=== PATIENT | female | born 1945 | race Caucasian/White ===

== ENCOUNTER 2020-01-14 06:20 | Outpatient (CLI) | payer MEDICARE, SELFPAY ==
[2020-01-14 18:34] LABS: SARS-CoV-2 RNA PCR Negative
== END 2020-01-14 06:21 | disposition home or self-care (01) ==
LOC: ANHCOVIDDT 06:21
PROVIDERS: PCP Family Medicine; Visit Provider Internal Medicine Gastroenterology
DX: Z01.818 Encounter for other preprocedural examination (principal); Z11.59 Encounter for screening for other viral diseases
CPT/HCPCS: 87635; U0003

== ENCOUNTER 2020-01-16 01:14 | Day surgery (SDC) | payer MEDICARE, SELFPAY ==
[2019-10-30 14:41] VITALS: BMI 23.8
[2020-01-13 11:23] VITALS: BMI 24.2
[2020-01-16 07:43] VITALS: BP 151/68; PULSE 92; RESP 16; TEMP 36.4; O2SAT 100
[2020-01-16] MEDS: LACTATED RINGERS 1,000 ML 150 ML IV CONT (07:48)
--- NOTE | 2020-01-16 08:03 | WPDANESEPPF ---
Anes - Initial Pre Proc Eval Procedure: Operation Date: 01/16/20 08:30 Proposed Procedures p Screening Colonoscopy - Skyler Chung MD Date/Time: 01/16/20 08:03 Surgeon: Skyler Chung MD Pre Op Diagnosis: Fam Hx Colon Ca Patient Data Age: 74 Gender: F Height: 5 ft 2 in Weight: 60.1 kg Last Vital Signs Temp 36.4 C 01/16/20 07:43 Pulse 92 01/16/20 07:43 Resp 16 01/16/20 07:43 BP 151/68 H 01/16/20 07:43 Pulse Ox 100 01/16/20 07:43 Allergies Allergy/AdvReac Type Severity Reaction Status Date / Time No Known Allergies Allergy Unverified 10/29/14 10:46 Home Medications Medication Instructions Recorded Confirmed Type simvastatin 10 mg PO DAILY 10/30/19 01/16/20 History calcium carbonate-vitamin D3 1 tablet PO DAILY 01/16/20 01/16/20 History [Calcium 500 + D] omega 0-gtw-wac-fish oil [[place]-3] 1 cap PO DAILY 01/16/20 01/16/20 History vitamins A,C,M-togu-hnwlfy [ICaps 1 tablet PO DAILY 01/16/20 01/16/20 History AREDS] Patient hx anesthesia problems: none Family hx anesthesia problems: none [facility] Past Medical History Medical History (Updated 01/16/20 @ 08:03 by Sno Warner MD) Hyperlipidemia Anes - Eval Final PreProcedure Day of Procedure 01/16/20 08:03 Patient weight: normal Heart: regular rate and rhythm Lungs: clear to auscultation Airway: Mallampati scale class 1 Neurological: alert and oriented Last oral intake: >/= 8 hours ASA classification: II Emergent: no Anesthetic plan: proceed Anesthesia type and monitoring: general GIVS and standard monitoring Informed Consent: The patient's anesthetic plan and its attendant risks and benefits were discussed with the patient/family/POA. Questions were solicited and answers provided to the satisfaction of the patient/family/POA.
--- NOTE | 2020-01-16 08:21 | P.HP_ITS ---
History of Present Illness History of Present Illness Consent: Risks, benefits, and alternatives have been discussed and questions answered. Patient agrees to proceed with procedure. Chief complaint: Fam Hx Colon Ca Narrative: Lelia Heard is a 74 year old W female Referred for screening colonoscopy secondary to family history of colon cancer in her mother diagnosed at age 60. Last colonoscopy 5 years ago no polyps were seen. [facility] Past Medical History Medical History (Updated 01/16/20 @ 08:03 by Son Warner MD) Hyperlipidemia Meds Home Medications and Allergies Home Medications Medication Instructions Recorded Confirmed Type simvastatin 10 mg PO DAILY 10/30/19 01/16/20 History calcium carbonate-vitamin D3 1 tablet PO DAILY 01/16/20 01/16/20 History [Calcium 500 + D] omega 3-meh-eji-fish oil [[place]-3] 1 cap PO DAILY 01/16/20 01/16/20 History vitamins A,C,H-sjdl-xkceqk [ICaps 1 tablet PO DAILY 01/16/20 01/16/20 History AREDS] Allergies Allergy/AdvReac Type Severity Reaction Status Date / Time No Known Allergies Allergy Unverified 10/29/14 10:46 Vital Signs Vital Signs - 24 hr 01/16/20 07:43 Temperature 36.4 C Pulse Rate 92 Respiratory Rate 16 Blood Pressure 151/68 H Pulse Oximetry 100 Exam Const: Orientation/consciousness: patient oriented x3 Resp: Auscultation: clear to auscultation bilaterally Cardio: Rate: regular rate Rhythm: regular rhythm Heart sounds: no murmurs GI: GI Palp: Yes Soft to palpation, No Tenderness to palpation present (GI), Yes No hepatosplenomegaly present and No Palpable mass present Auscultation: normal bowel sounds Neuro: General: patient oriented x3 and no focal motor deficits Extrem: General: no pedal edema Assessment and Plan Additional Plan Screening colonoscopy in high risk patient
[2020-01-16 09:20] VITALS: BP 99/58; PULSE 72; RESP 15; O2SAT 97
[2020-01-16 09:30] VITALS: BP 111/71; PULSE 67; RESP 13; O2SAT 100
[2020-01-16 09:40] VITALS: BP 119/71; PULSE 69; RESP 22; O2SAT 94
== END 2020-01-16 10:04 | disposition home or self-care (01) ==
PROVIDERS: PCP Nurse Practitioner Family; Visit Provider Internal Medicine Gastroenterology
PROC: 0DJD8ZZ Inspection of Lower Intestinal Tract, Via Natural or Artificial Opening Endoscopic (ICD-10-PCS; CPT 45378; principal; 2020-01-16 08:30)
DX: Z12.11 Encounter for screening for malignant neoplasm of colon (principal); K57.30 Diverticulosis of large intestine without perforation or abscess without bleeding; K64.1 Second degree hemorrhoids; K64.4 Residual hemorrhoidal skin tags; Z80.0 Family history of malignant neoplasm of digestive organs; E78.5 Hyperlipidemia, unspecified
CPT/HCPCS: G0105; 87635; C9803; J2704; J7120; U0003

== ENCOUNTER 2020-05-14 08:59 | Outpatient (CLI) | payer MEDICARE, SELFPAY ==
--- NOTE | ~2020-05-14 | MM_ITS ---
EXAMINATION: MM screening weston BI w dominga HISTORY: Screening TECHNIQUE: Craniocaudal and mediolateral oblique 3-D tomosynthesis images were obtained and synthetic 2-D images were generated. CAD analysis was submitted and interpreted. COMPARISON: Comparison to multiple prior studies sequentially, with oldest reviewed study dated 03/2016. BREAST PARENCHYMAL COMPOSITION: The breasts are extremely dense, which lowers the sensitivity of mamm ography. FINDINGS: There is no evidence of suspicious mass, calcification, or architectural distortion to sugg est malignancy in either breast. There has been no suspicious interval change. IMPRESSION: 1. No mammographic evidence of malignancy. 2. Recommend routine screening mammography in one year. BI-RADS Category 1: Negative Reviewed, dictated and finalized at location A.
== END 2020-05-14 09:00 | disposition home or self-care (01) ==
LOC: ANHIMG 09:00
PROVIDERS: PCP Nurse Practitioner Family; Visit Provider Nurse Practitioner Family
DX: Z12.31 Encounter for screening mammogram for malignant neoplasm of breast (principal)
CPT/HCPCS: 77063; 77067

== ENCOUNTER 2022-01-10 10:26 | Outpatient (CLI) | payer MEDICARE, SELFPAY ==
--- NOTE | ~2022-01-10 | XR_ITS ---
EXAM: XR abdomen/kub 1V HISTORY: LT URETERAL STONE 6 MO FU COMPARISON: None available FINDINGS: Clear lung bases. Normal bowel gas pattern. No organomegaly. No abnormal abdominal calcifi cation. Severe lumbar degenerative change, otherwise the regional bones and soft tissues are normal f or age. IMPRESSION: No nephrolithiasis detected. Reviewed, dictated and finalized at location K.
== END 2022-01-10 10:27 | disposition home or self-care (01) ==
PROVIDERS: PCP Nurse Practitioner Family; Visit Provider Urology
DX: N20.1 Calculus of ureter (principal)
CPT/HCPCS: 74018

== ENCOUNTER 2022-03-02 08:01 | Outpatient (CLI) | payer MEDICARE, SELFPAY ==
--- NOTE | ~2022-03-02 | MM_ITS ---
EXAMINATION: MM screening weston BI w dominga HISTORY: Screening TECHNIQUE: Craniocaudal and mediolateral oblique 3-D tomosynthesis images were obtained and synthetic 2-D images were generated. CAD analysis was submitted and interpreted. COMPARISON: Comparison to multiple prior studies sequentially, with oldest reviewed study dated 03/2016. BREAST PARENCHYMAL COMPOSITION: The breasts are extremely dense, which lowers the sensitivity of mamm ography FINDINGS: There is no evidence of suspicious mass, calcification, or architectural distortion to sugg est malignancy in either breast. There has been no suspicious interval change. IMPRESSION: 1. No mammographic evidence of malignancy. 2. Recommend routine screening mammography in one year. BI-RADS Category 1: Negative Reviewed, dictated and finalized at location A.
== END 2022-03-02 08:02 | disposition home or self-care (01) ==
PROVIDERS: PCP Nurse Practitioner Family; Visit Provider Nurse Practitioner Family
DX: Z12.31 Encounter for screening mammogram for malignant neoplasm of breast (principal)
CPT/HCPCS: 77063; 77067

== ENCOUNTER 2022-06-24 11:11 | Outpatient (CLI) | payer MEDICARE, SELFPAY ==
--- NOTE | ~2022-06-24 | XR_ITS ---
XR shoulder RT min 2V 06/24/2022 11:57 Indication: Right shoulder pain. Procedure: 4 views right shoulder Comparison: No prior studies for comparison. Findings: There is mild osteoarthritis of the glenohumeral joint. No fracture or traumatic malalignme nt. No soft tissue abnormality. No foreign bodies. Impression: 1: Mild osteoarthritis of the right glenohumeral joint. Reviewed, dictated and finalized at location A. Impression: 1: Mild osteoarthritis of the right glenohumeral joint.
--- NOTE | ~2022-06-24 | XR_ITS ---
XR cervical spine 4-5V 06/24/2022 11:57 Indication: Cervical spondylosis. Procedure: 4 views of the cervical spine Comparison: No prior studies for comparison. Findings: There is degenerative anterolisthesis at C3-4 and C4-5 and retrolisthesis at C5-6. There is disc narrowing at C4-5 through C6-7. No prevertebral soft tissue swelling. There is moderate multile cherry uncinate and facet hypertrophy. Lung apices are normal. Odontoid process is normal. No prevertebr al soft tissue abnormality. Impression: 1: Moderate cervical spondylosis. Reviewed, dictated and finalized at location A. Impression: 1: Moderate cervical spondylosis.
== END 2022-06-24 11:12 | disposition home or self-care (01) ==
LOC: ANHIMG 11:13
PROVIDERS: PCP Nurse Practitioner Family; Visit Provider Family Medicine
DX: M47.812 Spondylosis without myelopathy or radiculopathy, cervical region (principal); M19.011 Primary osteoarthritis, right shoulder
CPT/HCPCS: 72050; 73030

== ENCOUNTER 2022-12-15 11:20 | Outpatient (CLI) | payer MEDICARE, SELFPAY ==
--- NOTE | ~2022-12-15 | XR_ITS ---
XR abdomen/kub 1V 12/15/2022 11:45 INDICATION: Flank pain TECHNIQUE: KUB COMPARISON: None FINDINGS: Bowel gas pattern is normal. There is no evidence of free air, mass, organomegaly, ascites or obstruction. No abnormal calculi are seen. The bones appear intact. There is levoscoliosis of t he lumbar spine. IMPRESSION: 1: No acute abdominal abnormality identified. Reviewed, dictated and finalized at location L.
== END 2022-12-15 11:21 | disposition home or self-care (01) ==
PROVIDERS: PCP Nurse Practitioner Family; Visit Provider Urology
DX: N20.1 Calculus of ureter (principal)
CPT/HCPCS: 74018

== ENCOUNTER 2023-02-13 10:03 | Emergency (ER) | payer MEDICARE, SELFPAY ==
--- NOTE | ~2023-02-13 | XR_ITS ---
EXAMINATION: XR finger 2nd RT min 2V INDICATION: Right second finger pain and swelling TECHNIQUE: Four views of the right second finger are obtained. COMPARISON: None available FINDINGS: There is advanced osteoarthritis of the interphalangeal joints. No fracture is identified. There is mild soft tissue swelling of the second finger. IMPRESSION: 1. Osteoarthritis and soft tissue swelling without acute osseous abnormality. Reviewed, dictated and finalized at location A.
[2023-02-13 10:20] VITALS: BP 160/64; PULSE 82; RESP 16; TEMP 36.4; O2SAT 100
--- NOTE | 2023-02-13 10:32 | ED.FALL ---
HPI - Fall General Chief Complaint: Extremity Injury, Upper Stated Complaint: fall Time Seen by Provider: 02/13/23 10:27 Source: patient, family () and RN notes reviewed Mode of arrival: ambulatory Limitations: no limitations History of Present Illness HPI Narrative: Patient presents today complaining of a trip and fall on a gravel road approximately 2.5 hours prior to arrival. She reports pain to the right hand and right knee. Denies head injury or loss of consciousness. She currently rates her pain 4/10. She did take a shower and wash her abrasions prior to arrival. She is up-to-date on her tetanus vaccine. Related Data Home Medications Medication Instructions Recorded Confirmed simvastatin 10 mg tablet 10 mg PO DAILY 10/30/19 02/13/23 calcium carbonate 500 mg-vitamin 1 tablet PO DAILY 01/16/20 02/13/23 D3 5 mcg (200 unit) tablet (Calcium 500 + D) omega 3 350 mg-dha 235 mg-epa 90 1 cap PO DAILY 01/16/20 02/13/23 mg-fish oil 597 mg capsule,delay rel ([place]-3) vit A 7,160 unit-C 113 mg-E 100 1 tablet PO DAILY 01/16/20 02/13/23 fbge-fizj-vhchsn tablet,delayed rel. (ICaps AREDS) Allergies Allergy/AdvReac Type Severity Reaction Status Date / Time No Known Allergies Allergy Verified 02/13/23 10:12 Review of Systems Review of Systems: CONSTITUTIONAL: Denies body aches, fever, chills, or sweats. EYES: Denies visual changes, redness, or discharge. ENT: Denies rhinorrhea, congestion, sore throat, or otalgia. CARDIOVASCULAR: Denies chest pain, palpitations, or edema. RESPIRATORY: Denies cough or dyspnea. GASTROINTESTINAL: Denies abdominal pain, nausea, vomiting, or diarrhea. GENITOURINARY: Denies dysuria or hematuria. SKIN: Denies rash, itching. + abrasions to right knee and left hand MUSCULOSKELETAL: Pain to bilateral hands and right knee NEUROLOGIC: Denies headache, numbness, tingling, or weakness. PSYCH: Denies depression or anxiety. [facility] Past Medical History Medical History (Updated 02/13/23 @ 11:01 by Mahi Preciado, PRIMARY HEALTH [employer]GANISATION MANAGER, BC) Hyperlipidemia Exam Narrative: GENERAL: Well-appearing, well-nourished, and in no acute distress. HEAD: Normocephalic, atraumatic. EYES: EOMI. No redness or drainage. Conjunctivae normal. ENT: Mucous membranes pink and moist. Nares clear. No rhinorrhea. TMs normal bilaterally. Throat normal. Uvula midline. NECK: Normal AROM. Supple. No lymphadenopathy. CHEST: No respiratory distress. Clear to auscultation. HEART: Regular rate and rhythm. No murmur appreciated. Normal peripheral pulses. ABDOMEN: Soft, nontender, nondistended, normal active bowel sounds. MUSCULOSKELETAL: No bony tenderness. EXTREMITIES:Right knee:Scattered superficial abrasions to the knee and proximal lower leg. No bony tenderness about the knee. No ecchymosis or edema noted. Distal sensation intact. Capillary refill normal. Pedal pulse normal. Full AROM of the knee without pain. Left hand: 3 very superficial flap abrasions to the palmar aspect of the hand. No edema, erythema, or ecchymosis. No bony tenderness of the hand or wrist. Full range of motion of the fingers and wrist without pain. Right hand: Tenderness to the 2nd finger with scant edema. Distal sensation intact. Capillary refill normal. Somewhat limited range of motion, patient also has osteoarthritis at baseline peer. SKIN: Warm, dry, no rash. Capillary refill normal. Normal skin turgor. NEURO: No focal deficits. Alert and oriented x3. Gait steady. PSYCH: Normal affect. No signs of depression or anxiety. Course Course Level of Care: Express Care Visit Vital Signs Vital signs: Vital Signs Temperature 97.6 F 02/13/23 10:20 Pulse Rate 82 02/13/23 10:20 Respiratory Rate 16 02/13/23 10:20 Blood Pressure 160/64 H 02/13/23 10:20 Pulse Oximetry 100 02/13/23 10:20 Oxygen Delivery Room Air 02/13/23 10:20 Temperature 97.6 F 02/13/23 10:20 Pulse Rate 82 02/13/23 10:20
== END 2023-02-13 11:03 | disposition home or self-care (01) ==
PROVIDERS: Emergency Provider Nurse Practitioner; PCP Nurse Practitioner Family
DX: S80.211A Abrasion, right knee, initial encounter (principal); S60.512A Abrasion of left hand, initial encounter; W01.0XXA Fall on same level from slipping, tripping and stumbling without subsequent striking against object, initial encounter; S60.021A Contusion of right index finger without damage to nail, initial encounter; E78.5 Hyperlipidemia, unspecified
CPT/HCPCS: 73140; 99213; G0463

== ENCOUNTER → 2023-04-19 14:43 | Outpatient (CLI) | payer MEDICARE, SELFPAY ==
--- NOTE | ~2023-04-19 | MM_ITS ---
EXAMINATION: MM screening weston BI w dominga HISTORY: Screening TECHNIQUE: Craniocaudal and mediolateral oblique 3-D tomosynthesis images were obtained and synthetic 2-D images were generated. CAD analysis was submitted and interpreted. COMPARISON: Comparison to multiple prior studies sequentially, with oldest reviewed study dated 03/2016. BREAST PARENCHYMAL COMPOSITION: The breasts are heterogeneously dense, which may obscure small masses FINDINGS: There is a new mass in the lower inner quadrant of the right breast, middle third. The left breast is stable without evidence for malignancy. IMPRESSION: 1. New right breast mass. 2. Additional mammographic views and possible breast ultrasound are recommended. BI-RADS Category 0: Incomplete: Needs additional imaging evaluation. Reviewed, dictated and finalized at location A. IMPRESSION: 1. New right breast mass. 2. Additional mammographic views and possible breast ultrasound are recommended . BI-RADS Category 0: Incomplete: Needs additional imaging evaluation.
== END ==
PROVIDERS: PCP Nurse Practitioner Family; Visit Provider Nurse Practitioner Family
DX: Z12.31 Encounter for screening mammogram for malignant neoplasm of breast (principal); N63.14 Unspecified lump in the right breast, lower inner quadrant
CPT/HCPCS: 77063; 77067

== ENCOUNTER → 2023-05-16 09:09 | Outpatient (CLI) | payer MEDICARE, SELFPAY ==
--- NOTE | ~2023-05-16 | MMUS_ITS ---
EXAMINATION: MM diagnostic weston RT w dominga, US breast RT limited HISTORY: New right breast mass reported in lower inner quadrant middle third on screening mammogram o f 04/19/2023 TECHNIQUE: Additional 3-D tomosynthesis images of the right breast were performed and synthetic 2-D i mages were generated. CAD analysis was submitted and interpreted. High resolution lower inner quadran t right breast ultrasound was performed. COMPARISON: 04/19/2023 and bilateral screening mammogram FINDINGS: MAMMOGRAPHIC FINDINGS: An approximately 7.5 x 9.5 mm circumscribed mass is identified in the lower inner quadrant of the rig ht breast mid depth. ULTRASOUND: Right breast 3:00 5 cm from nipple: 5.8 x 8 x 11 mm circumscribed hypoechoic solid mass lesion with m inimal internal vascularity and through transmission is noted. The lesion has lobular outline. This i s likely a benign fibroadenoma. 6 month diagnostic right mammogram and targeted right breast ultrasou nd follow-up are recommended. IMPRESSION: 1. Probable benign fibroadenoma at right breast 3:00 5 cm from nipple 2. Recommend 6 month diagnostic right mammogram and targeted right 3:00 breast ultrasound follow-up BI-RADS category 3, probably benign findings. Reviewed, dictated and finalized at location A. IMPRESSION: 1. Probable benign fibroadenoma at right breast 3:00 5 cm from nipple 2. Recommend 6 month diagnostic right mammogram and targeted right 3:00 breast ultrasound follow-up BI-RADS category 3, probably benign findings.
== END ==
PROVIDERS: PCP Nurse Practitioner Family; Visit Provider Nurse Practitioner Family
DX: R92.8 Other abnormal and inconclusive findings on diagnostic imaging of breast (principal)
CPT/HCPCS: 76642; 77061; 77065; G0279

== ENCOUNTER → 2023-07-20 12:12 | Outpatient (CLI) | payer MEDICARE, SELFPAY ==
--- NOTE | ~2023-07-20 | DEXA_ITS ---
Bone Density Report Name: SANGITA MOLINA Age: 77 Sex: Female Ethnicity: White Date of : 1945 Indication: osteopenia; height loss; postmenopausal Referring Provider: [place], Brooke Contreras Study: Bone densitometry was performed. Exam Date: July 20, 2023 Accession number: [id number] Bone Density: Region BMD T-score Z-score Classification AP Spine (L1, L2) 0.784 -1.8 0.6 Osteopenia Femoral Neck (Left) 0.663 -1.7 0.5 Osteopenia Total Hip (Left) 0.789 -1.3 0.6 Osteopenia Femoral Neck (Right) 0.719 -1.2 1.0 Osteopenia Total Hip (Right) 0.848 -0.8 1.1 Normal Total Hip Mean 0.819 -1.1 0.9 Osteopenia World Health Organization criteria for BMD impression classify patients as: Normal (T-score at or above -1.0), Osteopenia (T-score between -1.0 and -2.5), or Osteoporosis (T-score at or below -2.5). 10-year Fracture Risk(1): Major Osteoporotic Fracture 13% Hip Fracture 2.9% Reported Risk Factors: [place] (), Neck BMD=0.663, BMI=24.5 (1) FRAX(R) Version 3.08. Fracture probability calculated for an untreated patient. Fracture probability may be lower if the patient has received treatment. Previous Exams: Region Exam Age BMD T-score BMD Change BMD Change Date g/cm2 vs Baseline vs Previous AP Spine(L1, L2) 07/20/2023 77 0.784 -1.8 -0.034* 0.031* 12/28/2018 73 0.753 -2.1 -0.065* 0.017 11/10/2016 71 0.735 -2.2 -0.082* -0.040* 04/08/2009 63 0.775 -1.9 -0.043* -0.043* 09/08/2006 60 0.818 -1.5 0.000 0.000 07/18/2005 59 0.817 -1.5 Total Hip(Left) 07/20/2023 77 0.789 -1.3 -0.071* -0.024 12/28/2018 73 0.813 -1.1 -0.047* 0.012 11/10/2016 71 0.801 -1.2 -0.059* -0.027 04/08/2009 63 0.829 -0.9 -0.032* 0.013 09/08/2006 60 0.815 -1.0 -0.045* -0.045* 07/18/2005 59 0.860 -0.7 Total Hip(Right) 07/20/2023 77 0.848 -0.8 -0.025 0.017 12/28/2018 73 0.831 -0.9 -0.042* 0.018 11/10/2016 71 0.813 -1.1 -0.060* -0.036* 04/08/2009 63 0.849 -0.8 -0.024 -0.022 09/08/2006 60 0.871 -0.6 -0.003 -0.003 07/18/2005 59 0.873 -0.6 *Denotes significance at 95% confidence level, LSC for AP Spine = 0.022 g/cm2, LSC for Total Hip = 0.027 g/cm2 Clinical Information Provided by Patient:
== END ==
PROVIDERS: PCP Nurse Practitioner Family; Visit Provider Nurse Practitioner Family
DX: Z78.0 Asymptomatic menopausal state (principal); M85.88 Other specified disorders of bone density and structure, other site; M85.852 Other specified disorders of bone density and structure, left thigh; M85.851 Other specified disorders of bone density and structure, right thigh
CPT/HCPCS: 77080

== ENCOUNTER 2023-08-08 08:48 | Outpatient (CLI) | payer MEDICARE, SELFPAY ==
--- NOTE | ~2023-08-08 | XR_ITS ---
XR abdomen/kub 1V 08/08/2023 09:18 INDICATION: History of lithotripsy. TECHNIQUE: KUB COMPARISON: 12/15/2022 FINDINGS: Bowel gas pattern is normal. There is no evidence of free air, mass, organomegaly, ascites or obstruction. No abnormal calculi are seen. The bones appear intact. Moderate levoscoliosis. IMPRESSION: 1: No acute abdominal abnormality identified. Reviewed, dictated and finalized at location D. REPAIRER
== END 2023-08-08 08:49 | disposition home or self-care (01) ==
PROVIDERS: PCP Nurse Practitioner Family; Visit Provider Urology
DX: Z87.442 Personal history of urinary calculi (principal)
CPT/HCPCS: 74018

== ENCOUNTER 2023-11-14 14:21 | Outpatient (CLI) | payer MEDICARE, SELFPAY ==
--- NOTE | ~2023-11-14 | MMUS_ITS ---
EXAMINATION: MM diagnostic weston RT w dominga, US breast RT limited HISTORY: Six-month follow-up of right 3:00 lesion 5 cm from nipple TECHNIQUE: Full field and spot ML, MLO and CC 3-D tomosynthesis images of the right breast were perfo rmed and synthetic 2-D images were generated. CAD analysis was submitted and interpreted. High resolu tion lower inner quadrant right breast ultrasound was performed. COMPARISON: 05/16/2023 diagnostic right mammogram and limited right breast ultrasound FINDINGS: MAMMOGRAPHIC FINDINGS: Approximately 7.5 x 11 mm irregular is noted in the lower inner quadrant of the right breast at mid d epth. Approximately 4.7 x 5.3 mm circumscribed opacity is noted posteriorly in the lower inner quadrant of the right breast. ULTRASOUND: 3:00 5 cm from nipple: Parallel irregular heterogeneous hypoechoic mass measuring approximately 6.2 x 7 x 7 x 11.3 mm. Portions of the margins are ill-defined compared to 05/16/2023. Ultrasound-guided bi opsy is recommended. IMPRESSION: 1. Irregular 1.3 cm mass with partially noncircumscribed margins 3:00 5 cm from nipple 2. Ultrasound-guided biopsy of right breast 3:00 lesion is recommended BI-RADS category 4, suspicious findings. Dr. Agrawal telephoned the report and ultrasound-guided biopsy recommendation on 11/14/2023 at 1527 hours to Nurse Kayla. Reviewed, dictated and finalized at location A. IMPRESSION: 1. Irregular 1.3 cm mass with partially noncircumscribed margins 3:00 5 cm from nipple 2. Ultrasound-guided biopsy of right breast 3:00 lesion is recommended BI-RADS category 4, suspicious findings. Dr. Agrawal telephoned the report and ultrasound-guided biopsy recommendation on at 1527 hours to Nurse Kayla.
== END 2023-11-14 14:22 ==
PROVIDERS: PCP Family Medicine; Visit Provider Nurse Practitioner Family
DX: R92.8 Other abnormal and inconclusive findings on diagnostic imaging of breast (principal)
CPT/HCPCS: 76642; 77061; 77065; G0279

== ENCOUNTER 2024-02-01 07:58 | Outpatient (CLI) | payer MEDICARE, SELFPAY ==
--- NOTE | ~2024-02-01 | MMUS_ITS ---
US breast biopsy RT w image, MM post biopsy invasive RT EXAMINATION: US GUIDED NEEDLE BIOPSY WITH VACUUM ASSISTANCE DATE: 02/01/2024 10:49 CDT INDICATION: Right breast mass seen on prior examination. Ultrasound-guided core biopsy is requested to evaluate for malignancy. TECHNIQUE AND FINDINGS: The risks and potential benefits of the procedure were discussed with the patient, and written inform ed consent was obtained. After sterile preparation of the right breast, 1% lidocaine was utilized fo r local anesthesia. 1% lidocaine with epinephrine was used for deep anesthesia. A 10G vacuum-assisted biopsy gun needle was advanced through to the outer edge of the region of inter est from a medial approach utilizing sonographic guidance. A total of three tissue core samples were obtained through the lesion. An Inrad tissue marker clip was then placed at the biopsy site. Hemost asis was achieved. The patient tolerated procedure well and there was no evidence of immediate complication. The patien t was given verbal instructions partly is from the department. Right breast mammograms to document t issue marker clip placement. The tissue samples were submitted to surgical pathology for histologic a nalysis. IMPRESSION: 1. Successful ultrasound-guided vacuum-assisted biopsy of right breast mass with tissue marker place ment. Please refer to pathology report for histologic analysis. Reviewed, dictated and finalized at location B. IMPRESSION: 1. Successful ultrasound-guided vacuum-assisted biopsy of right breast mass wi th tissue marker placement. Please refer to pathology report for histologic margarita lysis.
== END 2024-02-01 07:59 | disposition home or self-care (01) ==
PROVIDERS: PCP Nurse Practitioner Family; Visit Provider Nurse Practitioner Family
DX: C50.911 Malignant neoplasm of unspecified site of right female breast (principal); R92.8 Other abnormal and inconclusive findings on diagnostic imaging of breast; N63.10 Unspecified lump in the right breast, unspecified quadrant
CPT/HCPCS: 19083; 88305; 88360; A4648

== ENCOUNTER 2024-03-13 08:27 | Outpatient (CLI) | payer MEDICARE, SELFPAY ==
--- NOTE | ~2024-03-13 | MMUS_ITS ---
EXAMINATION: US_MAGSEEDRT_US, MM post biopsy diagnostic RT INDICATION: Right breast cancer TECHNIQUE: The procedure for a ultrasound -guided Magseed localization was discussed with the patient . Risks discussed included bleeding and infection. The patient verbalized understanding and agreed to proceed. The time out was performed to verify the patient's name, date of , and site of procedure. The s kin overlying the right breast was prepared in usual fashion. Utilizing ultrasound guidance, the need le was advanced into the right breast. Confirmation of Magseed position was achieved with ultrasound and subsequent mediolateral and craniocaudal mammogram. The patient tolerated procedure without immed iate complication. BREAST PARENCHYMAL COMPOSITION: Dense: The breasts are heterogeneously dense, which may obscure small masses FINDINGS: Ultrasound and mammographic images demonstrate deployment of the Magseed device of the biop sy-proven right breast cancer. IMPRESSION: 1. Successful ultrasound-guided right breast Magseed localization. Post procedure mammogram for marke r placement demonstrates appropriate location. Reviewed, dictated and finalized at location B. IMPRESSION: 1. Successful ultrasound-guided right breast Magseed localization. Post procedu re mammogram for marker placement demonstrates appropriate location.
== END 2024-03-13 08:28 | disposition home or self-care (01) ==
PROVIDERS: PCP Nurse Practitioner Family; Visit Provider Physician Assistant Surgical
DX: C50.911 Malignant neoplasm of unspecified site of right female breast (principal); R92.8 Other abnormal and inconclusive findings on diagnostic imaging of breast
CPT/HCPCS: 19285; 77065; A4648

== ENCOUNTER 2024-04-22 09:21 | Outpatient (CLI) | payer MEDICARE, SELFPAY ==
--- NOTE | 2024-04-22 09:43 | ECG_ITS ---
Test Date: 2024-04-22 10:09:06 Measurements Intervals Elmo Rate: 65 P: 70 UT: 170 QRS: -7 QRSD: 86 T: 47 QT: 408 QTc: 425 Interpretive Statements SINUS RHYTHM LEFT ATRIAL ENLARGEMENT [-0.15mV P WAVE IN V1/V2] LOW QRS VOLTAGE IN PRECORDIAL LEADS [QRS DEFLECTION < 1.0 mV IN CHEST LEADS] PATTERN CONSISTENT WITH PULMONARY DISEASE ABNORMAL ECG No previous ECG available for comparison Electronically Signed On 04-22-2024 11:03:16 CDT by Bryant Michaels M.D.
== END 2024-04-22 09:22 | disposition home or self-care (01) ==
PROVIDERS: PCP Nurse Practitioner Family; Visit Provider Surgery
DX: E78.5 Hyperlipidemia, unspecified (principal); R94.31 Abnormal electrocardiogram [ECG] [EKG]
CPT/HCPCS: 93005

== ENCOUNTER 2024-04-24 01:03 | Day surgery (SDC) | payer MEDICARE, SELFPAY ==
[2024-04-19 10:09] VITALS: BMI 24.5
--- NOTE | 2024-04-19 10:27 | PC.NURSE ---
Report to the Outpatient Waiting Room, entrance under the green pavilion located off [facility], at time __7:00AM on date __04/24/24 . Planned Procedure Time: __9:00AM . Time changes happen often and if your time is changed the preop area will call you the afternoon before. - You and your visitor will be asked to self-screen and do not enter if you have any COVID symptoms. - A mask is optional within the hospital at this time. Patients may have clear liquids (water, carbonated beverages, clear teas, apple juice) until 3 hours prior to surgery with a maximum of 20 ounces. - No food from midnight until time of surgery. Take the following medications with a SIP of water the morning of surgery: NONE DO NOT STOP ANY OF YOUR OTHER PRESCRIPTION MEDICATIONS PRIOR TO SURGERY ?EXCEPT THE FOLLOWING Medications to discontinue per physician ___HOLD ALL VITAMINS/SUPPLEMENTS 3 DAYS PRE-OP PER ANESTHESIA Date to take last dose 04/20/24 Please no make-up, nail guatemalan, hairspray, perfume, deodorant, or body powder the day of surgery. No jewelry (including any body piercings) or valuables the day of surgery, leave them at home. Please take a shower or bath the night before, or the morning of, surgery with an antibacterial soap. Wear comfortable, loose fitting clothing. - Jewelry must be removed prior to entering the operating room. Rings and piercings that are not removed may be cut off. - The hospital will not accept responsibility for valuables. - Please leave all valuables, including medications, at home the day of surgery. If you are going home after surgery, a licensed entry driver operator must drive you home. - NO public transportation without another adult if you receive anesthesia. - We recommend that an adult stay with you for 24 hours following discharge. - We also recommend that you do not drive, make important decision, drink alcoholic beverages, or take any drugs that were not prescribed by your health care provider for at least 24 hours after your discharge time. Follow any additional instructions given to you from your surgeon. If you or anyone in your household have experienced Covid symptoms in the past week, please notify your surgeon or the nurse liaison at the phone number below for possible testing. Telephone instructions given to ___PATIENT and asked if any additional questions and then verbalized understanding. Patient advised to call surgeon office or pre surgery nurse liaison [phone] if any additional questions.
--- NOTE | 2024-04-19 10:30 | PC.NURSE ---
Report to the Outpatient Waiting Room, entrance under the green pavilion located off [facility], at time __7:00AM on date . Planned Procedure Time: ___9:00AM . Time changes happen often and if your time is changed the preop area will call you the afternoon before. - You and your visitor will be asked to self-screen and do not enter if you have any COVID symptoms. - A mask is optional within the hospital at this time. -NOTHING BY MOUTH from midnight until time of surgery.*8 HOURS PRIOR TO SURGERY PER DR RAMSEY. Take the following medications with a SIP of water the morning of surgery: DO NOT STOP ANY OF YOUR OTHER PRESCRIPTION MEDICATIONS PRIOR TO SURGERY ?EXCEPT THE FOLLOWING Medications to discontinue per physician Date to take last dose Please no make-up, nail vietnamese, hairspray, perfume, deodorant, or body powder the day of surgery. No jewelry (including any body piercings) or valuables the day of surgery, leave them at home. Please take a shower or bath the night before, or the morning of, surgery with an antibacterial soap. Wear comfortable, loose fitting clothing. Children are encouraged to wear pajamas. - Jewelry must be removed prior to entering the operating room. Rings and piercings that are not removed may be cut off. - The hospital will not accept responsibility for valuables. - Please leave all valuables, including medications, at home the day of surgery. If you are going home after surgery, a licensed wedding transportation driver must drive you home. - NO public transportation without another adult if you receive anesthesia. - We recommend that an adult stay with you for 24 hours following discharge. - We also recommend that you do not drive, make important decision, drink alcoholic beverages, or take any drugs that were not prescribed by your health care provider for at least 24 hours after your discharge time. For Pediatric surgeries, we recommend two adults accompany the child home. Follow any additional instructions given to you from your surgeon. If you or anyone in your household have experienced Covid symptoms in the past week, please notify your surgeon or the nurse liaison at the phone number below for possible testing. Telephone instructions given to and asked if any additional questions and then verbalized understanding. Patient advised to call surgeon office or pre surgery nurse liaison [phone] if any additional questions.
--- NOTE | 2024-04-19 10:35 | PC.NURSE ---
Report to the Outpatient Waiting Room, entrance under the green pavilion located off [facility], at time __7:00AM on date __04/24/24 . Planned Procedure Time: __9:00AM . Time changes happen often and if your time is changed the preop area will call you the afternoon before. - You and your visitor will be asked to self-screen and do not enter if you have any COVID symptoms. - A mask is optional within the hospital at this time. - No food from midnight until time of surgery. NOTHING BY MOUTH FOR 8 HRS PRIOR TO SURGERY PER DR RAMSEY. Take the following medications with a SIP of water the morning of surgery: NONE DO NOT STOP ANY OF YOUR OTHER PRESCRIPTION MEDICATIONS PRIOR TO SURGERY ?EXCEPT THE FOLLOWING Medications to discontinue per physician ___HOLD ALL VITAMINS/SUPPLEMENTS 3 DAYS PRE-OP PER ANESTHESIA Date to take last dose____04/20/24 Please no make-up, nail jamaican, hairspray, perfume, deodorant, or body powder the day of surgery. No jewelry (including any body piercings) or valuables the day of surgery, leave them at home. Please take a shower or bath the night before, or the morning of, surgery with an antibacterial soap. Wear comfortable, loose fitting clothing. - Jewelry must be removed prior to entering the operating room. Rings and piercings that are not removed may be cut off. - The hospital will not accept responsibility for valuables. - Please leave all valuables, including medications, at home the day of surgery. If you are going home after surgery, a licensed dump truck driver must drive you home. - NO public transportation without another adult if you receive anesthesia. - We recommend that an adult stay with you for 24 hours following discharge. - We also recommend that you do not drive, make important decision, drink alcoholic beverages, or take any drugs that were not prescribed by your health care provider for at least 24 hours after your discharge time. Follow any additional instructions given to you from your surgeon. If you or anyone in your household have experienced Covid symptoms in the past week, please notify your surgeon or the nurse liaison at the phone number below for possible testing. Telephone instructions given to ____PATIENT and asked if any additional questions and then verbalized understanding. Patient advised to call surgeon office or pre surgery nurse liaison [phone] if any additional questions.
[2024-04-24] VITALS (14 sets, daily range): BP systolic 122–165; BP diastolic 58–85; PULSE 70–87; RESP 8–20; TEMP 35.5–36.5; O2SAT 95–100
--- NOTE | ~2024-04-24 | NM_ITS ---
EXAMINATION: NM sentinel node inject only DATE: 04/24/2024 09:14 INDICATION: Right breast cancer TECHNIQUE: 1.068 mCi Tc-99m filtered sulfur colloid was injected in four aliquots in the anterior brigitte ast near the areola. No images were obtained. IMPRESSION: 1. Right breast sentinel lymph node radiopharmaceutical injection. Reviewed, dictated and finalized at location A.
--- NOTE | ~2024-04-24 | MM_ITS ---
[id number] 04/24/2024 10:57 Indication: Status post surgical excision biopsy of the right breast Procedure: Post biopsy specimen radiograph Comparison: 03/13/2024 Findings: Specimen radiograph demonstrates the mass of interest as well as coil marker and magseed de vice. Impression: 1: Post biopsies specimen contains the mass, tissue marker and magseed device of interest. Reviewed, dictated and finalized at location B. Impression: 1: Post biopsies specimen contains the mass, tissue marker and magseed device o f interest.
[2024-04-24] MEDS: LIDOCAINE/PRILOCAINE CREAM 2.5-2.5% TUBE 1 EACH TOPICAL (07:21)
[2024-04-24] MEDS: ACETAMINOPHEN 500 MG TABLET 1000 MG PO (07:30)
[2024-04-24] MEDS: LACTATED RINGERS 1,000 ML 30 ML IV CONT ×2 (07:39→11:32)
--- NOTE | 2024-04-24 07:45 | WPDANESEPPF ---
Anes - Initial Pre Proc Eval Procedure: Operation Date: 04/24/24 09:00 Proposed Procedures p Right Lumpectomy with Mag Seed Localization, Right [place] Lymph Node Biopsy with Lymphoseek, Possible Injection of Methylene Blue, - Shelby Stewart MD s Right Breast Oncoplasty, Left Breast Symmetrizing Reduction Mastopexy - Paul Muñoz MD Date/Time: 04/24/24 07:45 Surgeon: Shelby Stewart MD Pre Op Diagnosis: right breast CA Patient Data Age: 78 Gender: F Height: 1.57 m Weight: 61 kg Allergies Allergy/AdvReac Type Severity Reaction Status Date / Time No Known Allergies Allergy Verified 04/24/24 07:41 Home Medications Medication Instructions Recorded Confirmed Type calcium carbonate 500 mg-vitamin 1 tablet PO DAILY 01/16/20 04/24/24 History D3 5 mcg (200 unit) tablet (Calcium 500 + D) omega 3 350 mg-dha 235 mg-epa 90 1 cap PO DAILY 01/16/20 04/24/24 History mg-fish oil 597 mg capsule,delay rel ([place]-3) vit A 7,160 unit-C 113 mg-E 100 1 tablet PO DAILY 01/16/20 04/24/24 History ejbm-[id number]-cwomcm tablet,delayed rel. (ICaps AREDS) ascorbic acid (vitamin C) 1,000 mg 1 g PO DAILY 04/19/24 04/24/24 History capsule multivitamin 1 tablet PO DAILY 04/19/24 04/24/24 History simvastatin 20 mg tablet 20 mg PO DAILY #90 tabs 04/23/24 04/24/24 Rx Patient hx anesthesia problems: none Family hx anesthesia problems: none Results Review: All pre-operative results and documents have been reviewed as part of the pre-operative evaluation. [facility] Past Medical History Medical History (Updated 02/19/24 @ 11:32 by Shelby Stewart MD) Anxiety Arthritis Breast mass, right Hyperlipidemia Osteopenia Family History Family History (Updated 02/19/24 @ 11:04 by Irene Obrien CMA) Father Diabetes mellitus Heart disease Cerebrovascular accident Mother Carcinoma of colon Hypertension Depression Heart disease Sibling Depression Alcoholism Grandparent Breast cancer Asthma Hypertension Diabetes mellitus Heart disease Social History Social History (Updated 02/19/24 @ 10:53 by Irene Obrien CMA) Social History: Patient is very confident filling out medical forms. Smoking status: Never smoker Alcohol intake: current Substance use: never Substance use type: does not use Do You Feel Safe in your Home?: Yes Lack of Transportation: No Lack of Food: Never True Current Housing: I Have Housing Concerned About Future Housing: No Difficulty Paying Gas/Electric Bills: No Difficulty Paying for Meds: No Currently Unemployed: No Education: Bachelor's Degree Difficulty w/ Childcare or Family Care: No Living arrangements: with family Additional living arrangements comments: [employer] Occupation/Education: retired Spiritual care concerns: No Agree to blood products: Yes Anes - Eval Final PreProcedure Day of Procedure 04/24/24 07:45 Patient weight: normal Heart: regular rate and rhythm Lungs: clear to auscultation Airway: Mallampati scale class II Neurological: alert and oriented Last oral intake: >/= 8 hours ASA classification: III Emergent: no Anesthetic plan: proceed Anesthesia type and monitoring: general ETT and standard monitoring Results Review: All pre-operative results and documents have been reviewed as part of the pre-operative evaluation. Informed Consent: The patient's anesthetic plan and its attendant risks and benefits were discussed with the patient/family/POA. Questions were solicited and answers provided to the satisfaction of the patient/family/POA.
--- NOTE | 2024-04-24 08:15 | PM.HPGS ---
History of Present Illness History of Present Illness Chief complaint: right breast CA Narrative: Patient seen and examined in pre-operative holding area. No interval change in medical history or symptoms. Patient remembers previous discussion of benefits and alternatives to procedure. Continues to desire to proceed with right breast oncoplastic mastopexy and left breast reduction. I reviewed the risks including but not limited to bleeding ,infection, asymmetry, undesireable cosmetic appearance, partial/total skin/nipple loss, no change or worsening of symptoms, change in sensation. I discussed the possible use of assistants and their level of participation in the case. Patient stated understanding and signed the consent form wishing to proceed Review of Systems Review of Systems: All systems reviewed & are unremarkable except as noted in HPI and below PMFSH Past Medical History Medical History (Updated 02/19/24 @ 11:32 by Shelby Stewart MD) Anxiety Arthritis Breast mass, right Hyperlipidemia Osteopenia Family History Family History (Updated 02/19/24 @ 11:04 by Irene Obrien CMA) Father Diabetes mellitus Heart disease Cerebrovascular accident Mother Carcinoma of colon Hypertension Depression Heart disease Sibling Depression Alcoholism Grandparent Breast cancer Asthma Hypertension Diabetes mellitus Heart disease Social History Social History (Updated 02/19/24 @ 10:53 by Irene Obrien CMA) Social History: Patient is very confident filling out medical forms. Smoking status: Never smoker Alcohol intake: current Substance use: never Substance use type: does not use Do You Feel Safe in your Home?: Yes Lack of Transportation: No Lack of Food: Never True Current Housing: I Have Housing Concerned About Future Housing: No Difficulty Paying Gas/Electric Bills: No Difficulty Paying for Meds: No Currently Unemployed: No Education: Bachelor's Degree Difficulty w/ Childcare or Family Care: No Living arrangements: with family Additional living arrangements comments: [employer]SE Occupation/Education: retired Spiritual care concerns: No Agree to blood products: Yes Meds Home Medications and Allergies Home Medications Medication Instructions Recorded Confirmed Type calcium carbonate 500 mg-vitamin 1 tablet PO DAILY 01/16/20 04/24/24 History D3 5 mcg (200 unit) tablet (Calcium 500 + D) omega 3 350 mg-dha 235 mg-epa 90 1 cap PO DAILY 01/16/20 04/24/24 History mg-fish oil 597 mg capsule,delay rel ([place]-3) vit A 7,160 unit-C 113 mg-E 100 1 tablet PO DAILY 01/16/20 04/24/24 History tobn-qlyw-aucrjo tablet,delayed rel. (ICaps AREDS) ascorbic acid (vitamin C) 1,000 mg 1 g PO DAILY 04/19/24 04/24/24 History capsule multivitamin 1 tablet PO DAILY 04/19/24 04/24/24 History simvastatin 20 mg tablet 20 mg PO DAILY #90 tabs 04/23/24 04/24/24 Rx cephalexin 500 mg capsule 500 mg PO Q12H #14 caps 04/24/24 Rx hydrocodone 5 mg-acetaminophen 325 1 tablet PO Q6H PRN pain #12 tabs 04/24/24 Rx mg tablet Allergies Allergy/AdvReac Type Severity Reaction Status Date / Time No Known Allergies Allergy Verified 04/24/24 07:41 Vital Signs Vital Signs - 24 hr 04/24/24 07:43 Temperature 36.3 C L Pulse Rate 79 Respiratory Rate 16 Blood Pressure 160/72 H Pulse Oximetry 100 Oxygen Delivery Room Air Exam Narrative: unchanged Assessment and Plan Assessment and plan (1) Primary adenocarcinoma of right breast: Code(s): C50.911 - Malignant neoplasm of unspecified site of right female breast Status: Acute Assessment and Plan: cont as above (2) Ductal carcinoma in situ of right breast: Code(s): D05.11 - Intraductal carcinoma in situ of right breast Status: Acute
--- NOTE | 2024-04-24 08:16 | W.PM.PROC2 ---
Procedure Note - Detailed Date of Procedure 04/24/24 Pre-op Diagnosis right breast CA Post-op Diagnosis Same Procedure Performed right oncoplastic mastopexy and left symmetrizing breast reduction. Surgeon Paul Muñoz MD Gas Generator Operator edwardo tsang pa-c Anesthesia General Description of Procedure Patient was seen in the preoperative holding area where the consent form was signed and the breasts were marked for an inferior pedicle Alvarado pattern and reduction/mastopexy. Patient was taken back to the OR and placed on the table in the supine position. Time-out was performed with Anesthesia, surgeons, and staff agreeing on patient's name, site, and surgeries to be performed. SCDs were placed on the lower extremities and inflated. Antibiotics were given IV. After general anesthesia was administered the breasts and right arm were prepped and draped in the usual sterile fashion. While Dr. Massey proceeded with right sentinel lymph node biopsy I took my attention to the left breast where I used a saline moistened lap pad and Bruno clamp to create a breast tourniquet. A 38 mm nipple Sizer was used to circumscribe the nipple-areolar complex and then I proceeded with de epithelializing the 6 cm wide inferior pedicle. I made my other skin incisions and used Bovie cautery to elevate superior skin flaps and Santi's plane down to the level of the chest wall exposing the left breast. Once all the lymph node biopsy was completed I turned my attention to the right breast where I used a saline moistened lap pad and Bruno clamp to create a breast tourniquet. 38 mm nipple Sizer was used to circumscribe the nipple-areolar complex and I proceeded with de epithelializing a 6 cm wide inferior pedicle. I made my other skin incisions and elevated superior skin flaps just above Santi's plane noting the right breast mass was slightly superficial. This was done with Bovie cautery down to the chest wall exposing the right breast. Dr. Stewart then proceeded with performing the right breast lumpectomy. I irrigated with normal saline. Hemostasis was obtained with Bovie cautery. I used 2-0 Vicryl sutures to reshape the remaining breast tissue and close the lumpectomy defect. I proceeded with further resection and shaping of the right breast along superior and lateral aspect with Bovie cautery. In total 169 g of tissue was removed from the right breast including the lumpectomy specimen. I irrigated with normal saline and hemostasis with Bovie cautery. I proceeded with closure using 2-0 Prolene for the T-junction. 3-0 Vicryl was used for dermis. The nipple was brought out 4.5 cm above the inframammary fold the breast midline at the most prominent portion of the breast and secured with 3-0 Vicryl suture 4-0 Monocryl was used for subcuticular closure. Now, changing gloves and using clean instrument I proceeded with resecting 171 g of tissue from the left breast which yielded a reasonably symmetric appearance to the reconstructed right breast. I irrigated with normal saline. Hemostasis with Bovie cautery. The pedicle was plicated and shaped with 2-0 Vicryl suture. 2-0 Prolene was used to secure the T-junction and 3-0 Vicryl were used for dermis. Again the nipple was brought out 4-1/2 cm above the inframammary fold of the most prominent portion of the breast at the breast midline and secured with 3-0 Vicryl suture. 4-0 Monocryl was used for subcuticular closure. There was reasonable size shape and symmetry to the breasts. The nipples and skin flaps appeared viable with good cap refill. I proceeded with injecting 20 cc of 1% lidocaine with epinephrine and 0.5% Marcaine plain along the inframammary fold and anterior axillary line of each breast. A dressing of Mastisol, Steri-Strips, 4 x 4, ABDs, and a breast binder was then applied. The patient was awakened from anesthesia and transferred to the recovery room in stable condition. Complications: None Estimated blood
--- NOTE | 2024-04-24 08:16 | WPDHPUPDATE1 ---
History and Physical Update Update Date/Time: 04/24/24 08:16 History and Physical has been reviewed, including an updated exam of the patient. There are NO changes in the patient's condition. Risks, benefits, and alternatives have been discussed and questions answered. Patient agrees to proceed with procedure.
[2024-04-24] MEDS: LIDO 1%/EPINEPHRINE 1:100,000 50 ML VIAL 40 ML INFILTRATE (08:58)
[2024-04-24] MEDS: ceFAZolin 2 GM/D5W 50 ML 2 GM/50 ML BAG IVPB (08:58)
[2024-04-24] MEDS: BUPivacaine HCL 0.5% 10 ML AMP 40 ML INFILTRATE (08:58)
--- NOTE | 2024-04-24 10:54 | W.PM.PROC2 ---
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 Right breast lumpectomy with magseed localization 2. [place] lymph node biopsy with lymphoseek Surgeon Shelby Stewart MD Slip Laster Marsha Bray PA-C Anesthesia General Description of Procedure Patient was identified in the pre-operative area and brought to the OR suite. She underwent tumor localization previously by IR with magseed placement as well as injection of lymphoseek radiotracer in Nuclear Medicine. She was laid supine in the operating table and sequential compression devices were applied. General anesthesia was induced without difficulties. Bilateral chest and right axillary regions were prepped and draped in a sterile fashion. The Neoprobe was used to identify the area with highest radioactivity in the axilla, and a small incision was made overlying this area. Dissection was carried down through the subcutaneous tissue into the clavipectoral fascia, which was incised. The probe was again used to scan this area, and a hot node was identified. This was carefully grasped and excised using the Ligasure device. The Neoprobe was used to obtain the following counts: sentinel lymph node #1, 651. The Neoprobe was used to verify that no additional areas of significant radioactivity in the axilla were present that was greater than 10% of the sentinel lymph node count, and this was confirmed. The wound was irrigated with saline and hemostasis was assured. The deep dermal layer was closed with 3-0 vicryl followed by 4-0 monocryl for the skin. Dermabond was applied followed by a sterile dressing. Attention was then turned to the breast. The sentimag probe was used to identify the area where the magseed was placed in the medial breast area. Dr Muñoz raised the reduction mammoplasty superior medial and lateral flaps. I then proceeded to identify the tumor with palpation and using the sentimag probe, and a rim of normal breast tissue was excised along with the tumor as our lumpectomy specimen. Once the specimen was completely excised, it was oriented using surgical pain as the following: medial yellow, orange lateral, inferior red, superior blue, anterior green and black posterior. The lumpectomy specimen was placed in the faxitron and 2 view xrays were obtained of the specimen for radiographic confirmation of Tumor, biopsy marker and magseed within the center of the specimen. An additional anterior, superior, posterior and medial margins were obtained due to close promixity of the magseed to the edge of the original lumpectomy specimen. The case was then turned over to Dr Muñoz for completion breast reduction and mastopexy, please refer to his operative note for further details. All needles, instruments and sponge counts were correct as reported by the operating room staff. Patient tolerated the procedure well with no immediate complications. Marsha Bray PA-C was present and assisted with patient positioning and retraction throughout the case. Estimated Blood Loss 75 Pathology Yes Complications No immediate complications Condition Stable Disposition PACU [facility] Billing Surgery - Charge Forward: Surgery Billing (CPT 53161, 20082)
[2024-04-24] MEDS: fentaNYL CITRATE INJ (*CRX) 100 MCG/2 ML VIAL 25 MCG IV PUSH (11:56)
== END 2024-04-24 15:38 | disposition home or self-care (01) ==
PROVIDERS: Plastic Surgery; PCP Nurse Practitioner Family; Visit Provider Surgery
PROC: (CPT 19301; principal; 2024-04-24 09:00)
PROC: (CPT 19316; 2024-04-24 09:00)
DX: C50.911 Malignant neoplasm of unspecified site of right female breast (principal); Z17.0 Estrogen receptor positive status [ER+]; F41.9 Anxiety disorder, unspecified; E78.5 Hyperlipidemia, unspecified; M85.88 Other specified disorders of bone density and structure, other site; Z79.891 Long term (current) use of opiate analgesic; Z80.0 Family history of malignant neoplasm of digestive organs; Z80.3 Family history of malignant neoplasm of breast; Z82.49 Family history of ischemic heart disease and other diseases of the circulatory system
CPT/HCPCS: 19316; 19318; 19301; 38525; 38792; 76098; 88305; 88307; 88342; A9270; A9520; J0690; J1100; J1170; J1580; J2250; J2405; J2704; J3010; J7030; J7120; Q9968

== ENCOUNTER 2024-08-06 10:34 | Outpatient (CLI) | payer MEDICARE, SELFPAY ==
--- NOTE | ~2024-08-06 | XR_ITS ---
EXAMINATION: XR abdomen/kub 1V DATE: 08/06/2024 10:54 INDICATION: Left ureteral stone. TECHNIQUE: A supine view of the abdomen on 2 radiographs was obtained. COMPARISON: Abdomen radiographs 08/08/2023 FINDINGS: There are no dilated loops of bowel. There is a moderate volume of stool in the colon. Ther e is a phlebolith in right pelvis. IMPRESSION: 1. No visible urolithiasis. Reviewed, dictated and finalized at location A. FER IMPRESSION: 1. No visible urolithiasis.
--- NOTE | 2024-08-06 14:01 | ECHO_ITS ---
Patient Info Name: Lelia Heard Age: 78 years : 1945 Gender: Female Ht: 62 in Wt: 130 lbs BSA: 1.62 m2 HR: 157 bpm BP: 151 / 70 mmHg Technical Quality: Good Exam Date: 08/06/2024 2:13 PM Exam Location: Echo Lab Patient Status: Outpatient Admit Date: 08/06/2024 Staff Ordering Physician: Wyatt Reyes DO Sustainability Manager: Abbey Haley RDCS Attending Provider: Wyatt Reyes DO Referring Physician: Eric WATKINS; Exam Type: CA echo doppler color flow Study Info Indications R01.1 - Cardiac murmur, unspecified Complete two-dimensional, color flow and Doppler transthoracic echocardiogram is performed. Strain analysis performed. Summary 1. Complete two-dimensional, color flow and Doppler transthoracic echocardiogram is performed. 2. Left ventricular chamber dimension is normal. 3. Left ventricular systolic function is normal, estimated at 65-70%. 4. The left ventricular diastolic function is grade I diastolic dysfunction. 5. E/e' 14 is mildly elevated. 6. Left atrial chamber dimension is mildly enlarged. 7. There is trace mitral valve regurgitation. 8. There is trace tricuspid valve regurgitation. 9. No pulmonary hypertension, estimated pulmonary arterial systolic pressure is 35 mmHg. 10. There is trace pulmonic regurgitation. Left Ventricle E/e' 14 is mildly elevated. Left ventricular chamber dimension is normal. Left ventricular systolic function is normal, estimated at 65-70%. The left ventricular diastolic function is grade I diastolic dysfunction. Right Ventricle Right ventricular chamber dimension is normal. Right ventricular systolic function is normal. Left Atria Left atrial chamber dimension is mildly enlarged. Right Atria Right atrial chamber dimension is normal. Aortic Valve The aortic valve is trileaflet. There is no aortic valve stenosis. There is no aortic valve regurgitation. Pulmonic Valve There is trace pulmonic regurgitation. Mitral Valve There is no mitral valve stenosis. There is trace mitral valve regurgitation. Tricuspid Valve There is trace tricuspid valve regurgitation. No pulmonary hypertension, estimated pulmonary arterial systolic pressure is 35 mmHg. Pericardium/Pleural There is no pericardial effusion. Inferior Vena Cava Normal inferior vena cava with >50% collapse upon inspiration consistent with normal right atrial pressure, 5 mmHg. Aorta The aortic root size at the sinus of Valsalva is normal. Left Ventricular Outflow Tract Name Value Normal LVOT 2D LVOT Diameter 2.0 cm LVOT Doppler LVOT Peak Gradient 8 mmHg LVOT Mean Gradient 4 mmHg LVOT VTI 29 cm LVOT VTI/AV VTI Ratio 1.0 LVOT Stroke Volume 88 ml LVOT CO 6.0 l/min LVOT CI 3.7 l/min/m2 Pulmonic Valve Name Value Normal PV Doppler PV Peak Gradient 6 mmHg PV Regurgitation Doppler VT Peak End Diastolic Velocity 70 cm/s Mitral Valve Name Value Normal MV Doppler MV Decel Holmes 397 cm/s2 MV PHT 58 ms MV Area (PHT) 3.8 cm2 4.0-5.0 MV Diastolic Function MV E Peak Velocity 80 cm/s MV A Peak Velocity 112 cm/s MV E/A 0.7 MV Decel Time 202 ms Tricuspid Valve Name Value Normal TV Regurgitation Doppler TR Peak Velocity 272 cm/s TR Peak Gradient 24 mmHg Estimated PAP/RSVP RA Pressure 5 mmHg <=5 PA Systolic Pressure 35 mmHg <36 RV Systolic Pressure 35 mmHg <36 Aorta Name Value Normal Ascending Aorta Ao Root Diameter (MM) 2.0 cm Ao Root Diam Index (MM) 1.3 cm/m2 Aortic Valve Name Value Normal AV Doppler AV Peak Velocity 150 cm/s AV Peak Gradient 9 mmHg AV Mean Gradient 5 mmHg AV VTI 28 cm AV Area (Cont Eq VTI) 3.1 cm2 >=3.0 AV Area (Cont Eq Bennie) 2.9 cm2 AV Regurgitation 2D LVOT Area 3.0 cm2 Ventricles Name Value Normal LV Dimensions 2D/MM IVS Diastolic Thickness (2D) 0.9 cm 0.6-1.0 IVS Diastole Thickness (MM) 0.7 cm 0.6-0.9 LVID Diastole (2D) 3.8 cm 3.8-5.2 LVID Diastole (MM) 4.1 cm 3.8-5.2 LVIW Diastolic Thickness (2D) 0.9 cm 0.6-0.9 LVIW Diastolic Thickness (MM) 0.8 cm 0.6-0.9 LVID Systole (2D) 2.0 cm 2.2-3.5 LVID Systole (MM) 1.7 cm 2.2-3.5 LVOT Diameter 2.0 cm LV Mass (2D Cubed) 102.17 g 67.00-162.00 LV Mass Index (2D Cubed) 63 g/m2 43-95 Relative Wall Thickness (2D) 0.47 LV Mass (MM Cubed) 85.14 g 67.00-162.00 LV Mass Index (MM Cubed) 53 g/m2 43-95 Relative Wall Thickness (MM) 0.39 LV Fractional Shortening/Ejection Fraction 2D/MM LV Fractional Shortening (2D) 48 % 27-45 LV Fractional Shortening (MM) 58 % 27-45 LV EF (MM Teicholz) 89 % 54-74 LV EF (2D Teicholz) 80 % 54-74 LV Diastolic Volume (4C MOD) 48 ml LV EF (4C MOD) 78 % LV Diastolic Volume (2C MOD) 32 ml LV EF (2C MOD) 71 % LV Diastolic Volume (BP MOD) 39 ml 46-106 LV Diastolic Volume Index (BP MOD) 24 ml/m2 29-61 LV Systolic Volume (BP MOD) 10 ml 14-42 LV Systolic Volume Index (BP MOD) 6 ml/m2 8-24 LV EF (BP MOD) 75 % 54-74 LV Diastolic Length (4C) 6.9 cm LV Systolic Length (4C) 5.6 cm LV Stroke Volume (4C MOD) 38 ml Atria Name Value Normal LA Dimensions LA Dimension (MM) 3.5 cm 2.7-3.8 LA Volume (4C A-L) 35 ml LA Volume (BP A-L) 38 ml RA Dimensions RA Area (4C) 10.3 cm2 <=18.0 EchoPAC Name Value Normal ZAFAR G lucius MARTIN(A2C) (AWMA) 15.0 % Report Signatures
== END 2024-08-06 10:35 | disposition home or self-care (01) ==
LOC: ANHIMG 10:45 → ANHCARD 11:36
PROVIDERS: PCP Nurse Practitioner Family; Visit Provider Internal Medicine Cardiovascular Disease
DX: N20.1 Calculus of ureter (principal); R01.1 Cardiac murmur, unspecified
CPT/HCPCS: 74018; 93306

== ENCOUNTER 2024-10-29 12:30 | Outpatient (CLI) | payer MEDICARE, SELFPAY ==
--- NOTE | ~2024-10-29 | MM_ITS ---
EXAMINATION: MM diagnostic weston BI w dominga HISTORY: Establish new baseline following bilateral breast surgery, status post right breast lumpecto my and bilateral reduction mammoplasty TECHNIQUE: 3-D tomosynthesis images of the breasts were performed and synthetic 2-D images were gener ated. CAD analysis was submitted and interpreted. COMPARISON: 11/14/2023, 04/19/2023 BREAST PARENCHYMAL COMPOSITION:Dense: The breasts are heterogeneously dense, which may obscure small masses. FINDINGS: No suspicious mass lesion or distortion are identified. No suspicious marrow microcalcifica tion seen. Right breast surgical clips present. IMPRESSION: No mammographic evidence for malignancy. BI-RADS Category 2: Benign finding(s). Reviewed, dictated and finalized at location . PAPERER HELPER
--- OUTSIDE RECORDS SUMMARY | 2024-10-29 14:09 | XMS_ITS | Encounter Summary ---
Author Organization [facility] [employer] [facility] Address [id number] [place] [address] Care Team Providers Care Booker Name Role Phone Ilan Gomez MD Primary Care Provider [phone] Encounter Details Date Type Department Care Team (Late Contact Info) Description 10/23/2024 Orders Only [facility] Oncology and Hematology [facility] [address] [place] [address] Justin Sidhu MD [address] [place] [phone] Social History Tobacco Use Types Packs/Day Years Used Date Smoking Tobacco: Never Alcohol Use Standard Drinks/Week Comments Yes 0 (1 standard drink = 0.6 oz pur e alcohol) socially Comments Unknown Sex and Gender Information Value Date Recorded Sex Assigned at Female 02/19/2024 9:44 PM CDT Legal Sex Female 3:19 PM CDT Gender Identity Female 02/19/2024 9:44 PM CDT Sexual Orientation Straight 02/19/2024 9: 44 PM CDT documented as of this encounter Plan of Treatment Upcoming Encounters Date Type Department Care Team (Late st Contact Info) Description 02/24/2025 11:30 AM CDT Office Visit [facility] Oncology and Hematology - [place] [address] [place] [address] Justin Sidhu MD [address] [place] [phone] documented as of this encounter Procedures Procedure Name Priority Date/Time Associated Diagnosis Comments CBC WITH AUTODIFFERENTIAL Routine 2024 10:09 AM STUCCO LABORER documented in this encounter Results * CBC WITH AUTODIFFERENTIAL (2024 10:09 AM STUCCO LABORER) Blood Justin Sidhu MD HEMATOLOGY ORDERABLES Final Res ult documented in this encounter Visit Diagnoses Not on filedocumented in this encounter Care Teams Booker Relationship Specialty Start Date End Date Ilan Gomez MD [address] [place] [phone] PCP - General Family Practice 02/07/24 documented as of this encounter
--- OUTSIDE RECORDS SUMMARY | 2024-10-29 14:09 | XMS_ITS | Clinical Summary ---
Author Organization [facility] Belén karmen Denney Address [address] [place] [address] Care Team Providers Care Hr Business Partner Consultant Name Role Phone Ilan Gomez MD Primary Care Provider [phone] Allergies No known active allergies Medications simvastatin (ZOCOR) 20 mg tablet Take 40 mg by mouth daily with supper. Active calcium citrate-vitamin d3 (CITRACAL D) 315 mg-5 mcg (200 unit) Tablet Take 3 Tablets by mouth daily. Active ascorbic acid (VITAMIN C) 250 mg Tablet, Chewable Take 250 mg by mouth daily. Active Fish Oil-Mooers-3 Fatty Acids 360-1,200 mg Capsule Take 1 Capsule by mouth daily. Active MULTIVITAMIN ORAL Take by mouth. Active tamoxifen (NOLVADEX) 20 mg tablet Take 1 Tablet (20 mg) by mouth daily. 90 Tablet 2 5 Active tamoxifen (NOLVADEX) 20 mg tablet Take 1 Tablet (20 mg) by mouth daily. 90 Tablet 2 4 10/22/19 25 Discontinu ed(Reorder ) Active Problems No known active problems Encounters Date Type Department Care Team Description 10/24/2024 2:45 PM TOMB MAKER HELPER Office Visit [facility] Oncology and Hematology [facility] [address] [place] [address] Justin Sidhu MD Malignant neoplasm of lower-inner quadrant of right breast of female, estrogen receptor positive (CMS/HCC) (Primary Dx) 10/23/[address] [facility] Oncology and Hematology [facility] [address] [place] [address] Justin Sidhu MD 10/22/2024 External Device Data STL ABSTRACTION Provider, Abstract 10/22/[address] [facility] Oncology and Hematology - [place] [address] [place] [address] Justin Sidhu MD 10/01/2024 External Device Data STL ABSTRACTION Provider, Abstract 09/25/2024 External Device Data STL ABSTRACTION Provider, Abstract 09/25/2024 External Device Data STL ABSTRACTION Provider, Abstract 09/24/2024 Chart Note [facility] Emergency Department [address] [address] Lamberto Karimi MD from Last 3 Months Family History Medical History Relation Name Comments No Known Problems Brother 1 No Known Problems Brother 2 No Known Problems Brother 3 No Known Problems Child 1 No Known Problems Child 2 No Known Problems Child 3 Diabetes Father Heart Disease Father Colon Cancer Mother Relation Name Status Comments Brother 1 Alive Brother 2 Alive Brother 3 Alive Child 1 Alive Child 2 Alive Child 3 Alive Father Mother Social History Tobacco Use Types Packs/Day Years Used Date Smoking Tobacco: Never Tobacco Cessation:Counseling Given: Not Answered Alcohol Use Standard Drinks/Week Comments Yes 0 (1 standard drink = 0.6 oz pur e alcohol) socially Comments Unknown Sex and Gender Information Value Date Recorded Sex Assigned at Female 02/19/2024 9:44 PM CDT Legal Sex Female 3:19 PM CDT Gender Identity Female 02/19/2024 9:44 PM CDT Sexual Orientation Straight 02/19/2024 9: 44 PM CDT Last Filed Vital Signs Vital Sign Reading Time Taken Comments Blood Pressure 192/93 10/24/2024 2:37 PM TOMB MAKER HELPER Pulse 78 10/24/2024 2:35 PM TOMB MAKER HELPER Temperature 36.2 C (97.1 F) 10/24/2024 2:35 PM TOMB MAKER HELPER Respiratory Rate 15 10/24/2024 2:35 PM TOMB MAKER HELPER Oxygen Saturation 94% 10/24/2024 2:35 PM TOMB MAKER HELPER Inhaled Oxygen Concentration - - Weight 62 kg (136 lb 9.6 oz) 10/24/2024 2:35 PM TOMB MAKER HELPER Height 157.5 cm (5' 2 ) 02/08/2024 10:39 AM CDT Body Mass Index 24.98 02/08/2024 10:39 AM CDT Plan of Treatment Upcoming Encounters Date Type Department Care Team (Late st Contact Info) Description 02/24/2025 11:30 AM CDT Office Visit [facility] Oncology and Hematology - [place] [address] [facility] [address] [place] [address] Justin Sidhu MD [address] [facility] [address] [place] [address] Health Maintenance Due Date Last Done Comments OSTEOPOROSIS SCREENING 2011 ZOSTER VACCINE (3 of 3) 09/16/2020 07/22/2020, 11/20 RSV VACCINE (60+ or ) (1 - 1-dose 75+ series) 2021 INFLUENZA VACCINE (#1) 2024 3, 06/03/2022, 06/04/2021, Additional history exists DTAP/TDAP/TD VACCINES (2 - T d or Tdap) 10/15/2024 10/15/2014 PNEUMOCOCCAL VACCINE 65+ YEARS Completed 11/07/2017 , 10/15/2014 Procedures Procedure Name Priority Date/Time Associated Diagnosis Comments CBC WITH AUTODIFFERENTIAL Routine 2024 10:09 AM TOMB MAKER HELPER from Last 3 Months Results * CBC WITH AUTODIFFERENTIAL (2024 10:09 AM TOMB MAKER HELPER) Blood us Justin Sidhu MD HEMATOLOGY ORDERABLES Final Res ult from Last 3 Months Insurance [employer]ET[employer] O [facility] Care Teams Hr Business Partner Consultant Relationship Specialty Start Date End Date Ilan Gomez MD [address] [place] [phone] PCP - General Family Practice 02/07/24
--- OUTSIDE RECORDS SUMMARY | 2024-10-29 14:09 | XMS_ITS | Clinical Summary ---
Author Organization [facility] Address [facility] [place] [address] Care Team Providers Care Metallurgist Helper Name Role Phone Unavailable Primary Care Provider Unavailabl e Social History Tobacco Use Types Packs/Day Years Used Date Smoking Tobacco: Never Assessed Comments Unknown Sex and Gender Information Value Date Recorded Sex Assigned at Not on file Legal Sex Female 7:03 PM CDT Gender Identity Not on file Sexual Orientation Not on file Plan of Treatment Health Maintenance Due Date Last Done Comments Hepatitis C 1963 DTaP, Tdap and Td Vaccines ( 1 - Tdap) 1965 Zoster Vaccines (1 of 2) 1996 Dexa Scan (General) 2011 Pneumococcal Vaccine: 65+ Ye ars (1 of 1 - PCV) 2011 RSV Immunization or 60+ Years (1 - 1-dose 75+ series) 2021 COVID-19 Vaccine (2023-2 5 season) 2024 Influenza Adult (#1) 2024 Meningococcal B Vaccine Aged Out No l onger eligible based on patient's age to complete this topic Meningococcal Vaccine Aged Out No shara rere eligible based on patient's age to complete this topic RSV Immunizations Under 20 Months Aged Out No longer eligible based on patient's age to complete this topic
== END 2024-10-29 12:31 | disposition home or self-care (01) ==
LOC: ANHIMG 12:32
PROVIDERS: PCP Nurse Practitioner Family; Visit Provider Physician Assistant Surgical
DX: D05.11 Intraductal carcinoma in situ of right breast (principal)
CPT/HCPCS: 77062; 77066; G0279

== ENCOUNTER 2025-02-21 10:24 | Outpatient (CLI) | payer MEDICARE, SELFPAY ==
--- NOTE | ~2025-02-21 | XR_ITS ---
XR abdomen/kub 1V Ordering provider: Matt Angulo MD History: . lt ureteral stone . Comparison: None. FINDINGS: BOWEL: Nonobstructive bowel gas pattern. ORGANOMEGALY: None. SIGNIFICANT PATHOLOGIC CALCIFICATIONS: Faint calcifications seen in the left renal area which may be stones. OTHER: No free air is seen under the diaphragm. Levoscoliosis. Degenerative changes of the spine. Pub ic symphysitis. IMPRESSION: NO ACUTE ABDOMINAL FINDINGS. Highly suggestive stones in the left kidney. Noncontrast CT is better for evaluation. Reviewed, dictated and finalized at location A. IMPRESSION: NO ACUTE ABDOMINAL FINDINGS. Highly suggestive stones in the left kidney. Noncontrast CT is better for evalu ation.
== END 2025-02-21 10:25 | disposition home or self-care (01) ==
PROVIDERS: PCP Nurse Practitioner Family; Visit Provider Urology
DX: N20.1 Calculus of ureter (principal)
CPT/HCPCS: 74018

== ENCOUNTER 2025-03-31 09:03 | Outpatient (CLI) | payer MEDICARE, SELFPAY ==
--- NOTE | ~2025-03-31 | CT_ITS ---
Non-contrast CT scan of the Abdomen and Pelvis Clinical indication: Kidney stone Technique: 2.5 mm axial scans were obtained through the abdomen and pelvis without intravenous or or al contrast. Dose reduction technique was used on this scan by utilizing automated exposure control a nd iterative reconstruction technique. The dose-length product (DLP) was 165.01 mGy-cm. Findings: Images through the lung bases reveal no abnormalities. There is no evidence of renal or ureteral calculi. The kidneys and the ureters are nondilated. The liver, spleen, pancreas, gallbladder, and adrenals appear normal. There is no aortic aneurysm. There is no evidence of bowel obstruction. Images through the pelvis were performed. There is no evidence of ascites or lymphadenopathy. Urinary bladder unremarkable. No pelvic mass seen. No ascites. Impression: No significant abnormality seen. Reviewed, dictated and finalized at [facility]. Impression: No significant abnormality seen.
--- OUTSIDE RECORDS SUMMARY | 2025-03-31 09:21 | XMS_ITS | Clinical Summary ---
Author Organization [facility] Address [address] [place] [address] Care Team Providers Care Peanut Cleaner Name Role Phone Unavailable Primary Care Provider [...] Td Vaccines ( 1 - Tdap) 1965 Pneumococcal Vaccine: 50+ Ye ars (1 of 1 - PCV) 1996 Zoster Vaccines (1 of 2) 1996 Dexa Scan (General) 2011 RSV Immunization or 60+ Years (1 - 1-dose 75+ series) 2021 COVID-19 Vaccine (2023-2 5 season) 2024 Meningococcal B Vaccine Aged Out No l onger eligible based on patient's age to complete this topic Meningococcal Vaccine Aged Out No shara rere eligible based on patient's age to complete this topic RSV Immunizations Under 20 Months Aged Out No longer eligible based on patient's age to complete this topic
--- OUTSIDE RECORDS SUMMARY | 2025-03-31 09:21 | XMS_ITS | Clinical Summary ---
Author Organization [facility] Belén karmen Denney Address [address] [place] [address] Care Team Providers Care Budget Clerk Name Role Phone Unavailable Primary Care Provider Unavailabl e Allergies No known active allergies Medications simvastatin (ZOCOR) 20 mg tablet Take 40 mg by mouth daily with supper. Active calcium citrate-vitamin d3 (CITRACAL D) 315 mg-5 mcg (200 unit) Tablet Take 3 Tablets by mouth daily. Active ascorbic acid (VITAMIN C) 250 mg Tablet, Chewable Take 250 mg by mouth daily. Active Fish Oil-Oneco-3 Fatty Acids 360-1,200 mg Capsule Take 1 Capsule by mouth daily. Active MULTIVITAMIN ORAL Take by mouth. Active tamoxifen (NOLVADEX) 20 mg tablet Take 1 Tablet (20 mg) by mouth daily. 90 Tablet 2 10/22/2024 Active Active Problems No known active problems Encounters Date Type Department Care Team Description 03/19/2025 External Device Data STL ABSTRACTION Provider, Abstract 03/19/2025 External Device Data STL ABSTRACTION Provider, Abstract 03/19/2025 External Device Data STL ABSTRACTION Provider, Abstract 03/18/2025 External Device Data STL ABSTRACTION Provider, Abstract 02/25/2025 Orders Only [facility] Oncology and Hematology - [place] [address] [place] [address] Justin Sidhu MD 02/24/2025 11:30 AM CDT Office Visit [facility] Oncology and Hematology - [place] [address] [place] [address] Justin Sidhu MD Malignant neoplasm of lower-inner quadrant of right breast of female, estrogen receptor positive (CMS/HCC) (Primary Dx) 02/19/2025 External Device Data STL ABSTRACTION Provider, Abstract 02/18/2025 External Device Data STL ABSTRACTION Provider, Abstract 01/23/2025 External Device Data STL ABSTRACTION Provider, Abstract 01/22/2025 External Device Data STL ABSTRACTION Provider, Abstract 01/21/2025 External Device Data STL ABSTRACTION Provider, Abstract from Last 3 Months Family History Medical [...] Sign Reading Time Taken Comments Blood Pressure 124/81 02/24/2025 11:28 AM CDT Pulse 87 02/24/2025 11:26 AM CDT Temperature 36.3 C (97.4 F) 02/24/2025 11:26 AM CDT Respiratory Rate 15 02/24/2025 11:26 AM CDT Oxygen Saturation 94% 02/24/2025 11:26 AM CDT Inhaled Oxygen Concentration - - Weight 61.1 kg (134 lb 9.6 oz) 02/24/2025 11:26 AM CDT Height 157.5 cm (5' 2) 02/08/2024 10:39 AM CDT Body Mass Index 24.62 02/08/2024 10:39 AM CDT Plan of Treatment Upcoming Encounters Date Type Department Care Team (Late st Contact Info) Description 06/30/2025 11:45 AM CDT Office Visit [facility] Oncology and Hematology - [place] [address] [place] [address] Justin Sidhu MD [address] [facility] [address] [place] [address] Health Maintenance Due Date Last Done Comments OSTEOPOROSIS SCREENING 2011 ZOSTER VACCINE (3 of 3) 09/16/2020 07/22/2020, 11/20 RSV VACCINE (60+ or ) (1 - 1-dose 75+ series) 2021 DTAP/TDAP/TD VACCINES (2 - T d or Tdap) 10/15/2024 10/15/2014 INFLUENZA VACCINE (#1) 2025 3, 06/03/2022, 06/04/2021, Additional history exists PNEUMOCOCCAL VACCINE 50+ YEARS Completed 11/07/2017 , 10/15/2014 Procedures Procedure Name Priority Date/Time Associated Diagnosis Comments CBC WITH DIFFERENTIAL Routine 02/17/2025 4:29 PM CDT from Last 3 Months Results * CBC WITH DIFFERENTIAL (02/17/2025 4:29 PM CDT) Blood us Justin Sidhu MD HEMATOLOGY ORDERABLES Final Res ult from Last 3 Months Insurance AETNA O [facility]
--- OUTSIDE RECORDS SUMMARY | 2025-03-31 09:21 | XMS_ITS | Data Portability ---
Author Organization [place] [facility], Main Office Address [address] [place] [address] Assessment Encounter Date Assessment Date Assessment LastModified by Organization Details LastModified Time 01/10/2023 01/10/2023 States she is [facility] dental as of 01/10/23. Not available 01/10/2023 12:41:51 07/13/2023 07/13/2023 Discussed RSV vaccine 07/13/23 States she is utd vision and dental as of 01/10/23. Bone density next week 07/2023. Not available 07/13/2023 12:19:03 Plan of Treatment Reminders Order Date Submit Date Provider Last Modified By Organization Details Last Modified Time Details Appointments None recorded. Lab lipid panel, serum [address] (Lab), [address] [place], [address], 3 09:39:30 hepatic function panel, serum [address] (Lab), [address] [place], [address], 3 09:39:30 BMP, serum or plasma 2022 023 [facility] (Lab), [address] [place], [address], 3 14:08:14 Referral None recorded. Procedures None recorded. Surgeries None recorded. Imaging MAMMO, diagnostic, digital, unilateral - *please call pt to schedule* Right side 2022 024 [email or web address] [facility], [address], [place], [address], 4 09:16:25 US, breast, unilateral - to be done w/ Dx Mamm 2022 024 PERLA [facility], [address], [place], [address], 4 17:20:24 MAMMO, screening, digital, bilateral - *please call pt to schedule* 2022 023 [facility], [address], [place], [address], 3 07:45:25 DEXA - *Please call patient to schedule* 2022 023 [facility], [address], [place], [address], 3 18:41:59 Medication Orders None recorded. Patient TargetsNo targets recorded. Patient Instructions Encounter Date Encounter Id Patient Instructions Last Modified By Organization Details Last Modified Time 01/10/2023 [id number] Fu in 6 mo for lipid, osteopenia, diverticular disease. Not available 01/10/2023 12:43:00 07/13/2023 [id number] 6 mo fu lipid, joint pain, eye exam due to family history mac degen and glaucoma. Not available 07/13/2023 12:22:48 Reason for Referral None Reported. Results Created Date Observation Date Name Description Value Unit Range Abnormal Flag Note LastModifiedBy Organization Detail LastModifiedTime 06/24/2006/24/2022 XR, kodiul spring No observ ation record ed. [id number] [facility] [address], [place], [address], 11/02/2022 06:53:04 06/24/20 22 06/24/2022 XR, shoul spring, 2 or more view No observ ation record ed. MIGRATION.[id number] [place] [address] [address] [facility], [place], [address], 11/02/2022 06:53:04 06/24/20 22 06/24/2022 XR, cervi padmaja spine , 4 or 5 view No observ ation record ed. MIGRATION.[id number] [place] [address] [address], [place], [address], 11/02/2022 06:53:04 06/24/20 22 06/24/2022 XR, cervi padmaja spine , 4 or 5 view No observ ation record ed. MIGRATION.[id number] [place] [address] [address] [facility], [place], [address], 11/02/2022 06:53:04 12/16/19 23 12/15/2022 XR, abdom en No observ ation record ed. [email or web address] [facility], [place], [address], 01/10/2023 12:37:12 02/14/20 23 02/13/2023 XR, finge r(s) No observ ation record ed. [id number] [facility], [place], [address], 02/16/2023 16:01:14 04/19/20 23 04/19/2023 MAMMO , scree salvador, digit al, bilat eral No observ ation record ed. [facility] [address], [place], [address], 04/20/2023 11:32:45 05/16/20 23 05/16/2023 MAMMO , diagn ostic , digit al, bilat eral No observ ation record ed. [facility] [address], [place], [address], 05/18/2023 17:09:25 07/20/20 23 07/20/2023 DEXA No observ ation record ed. [email or web address] [facility] [address], [place], [address], 07/26/2023 11:27:29 08/08/20 23 08/08/2023 XR, abdom en No observ ation record ed. [address] [id number], [place], [address], 08/09/2023 15:43:28 11/14/19 24 11/14/2023 ultra sound guide d core biops y (PROC ) No observ ation record ed. [address] [id number], [place], [address], 02/27/2024 11:02:10 11/14/19 24 11/14/2023 US, brigitteas t, unila teral No observ ation record ed. [facility] [address], [place], [address], 11/15/2023 10:43:04 11/15/19 24 11/14/2023 ultra sound guide d core biops y (PROC ) No observ ation record ed. [facility] [address], [place], [address], 01/16/2024 11:02:01 11/15/19 24 11/14/2023 ultra sound guide d core biops y (PROC ) No observ ation record ed. [address] [address], [place], [address], 02/27/2024 11:02:54 11/15/19 24 11/14/2023 ultra sound guide d core biops y (PROC ) No observ ation record ed. [address] [address], [place], [address], 02/27/2024 11:03:09 11/15/19 24 11/14/2023 MAMMO , scree salvador, digit al, bilat eral No observ ation record ed. [facility] [address], [place], [address], 11/15/2023 17:37:56 Result Notes None recorded. Problems Name Problem SNOMED Code Status Onset Date Resolution Date Notes Provider Name and Address Organization Details Recorded Time Hyperlipid emia 70565904 Active Not Available [facility] 3 06:46:04 Family history of cancer of colon 482290371 Active 2019 Not Available [facility] 3 06:46:04 Osteopenia 133565838 Active 2019 Not Available [facility] 3 06:46:04 Pain in right foot 2957378162448 07 Active 2021 Not Available [facility] 3 06:46:04 Pain in both feet 6593047175829 9102 Active 2021 Not Available [facility] 3 06:46:03 [place] - lesion 809981181 Active 2021 Not Available [facility] 3 06:46:03 Verruca plantaris 37221035 Active 2021 Not Available [facility] 3 06:46:05 Blister of foot 096911629 Active 2021 Not Available [facility] 3 06:46:04 Pain of right shoulder joint 2435713356660 9100 Active 2021 Not Available [facility] 3 06:46:03 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 437759548 Active 2021 Not Available [facility] 3 06:46:04 Inflammati on of rotator cuff tendon 081614448 Active 2021 Not Available [facility] 3 06:46:04 Plantar wart of right foot 9986158041365 9101 Active 2021 Not Available [facility] 3 06:46:03 Diverticul osis of colon 589589644 Active 2021 Not Available [facility] 3 06:46:05 Mammograph y abnormal 360217452 Active 2022 Brooke Coleman NP [address], [address], [place], [address] , [facility] 3 07:47:01 Mammograph ic mass of right breast 9634511994838 9103 Active 2023 John Grullon MD [address], [address], [place], [address] , [facility] 4 09:34:51 Problem Notes None recorded. Procedures Surgical History Date Name Laterality Status Provider Name and Address Organization Details Recorded Time 07/20/20 23 Most Recent Bone Density completed Brooke Coleman NP [address], [address], [place], [address], [facility] 07/21/2023 06:51:06 03/02/20 22 Most Recent Mammogram completed Brooke Kinsey RN [facility] 01/10/2023 12:24:10 01/16/20 20 Colonoscopy completed Not Available [facility] 11/03/19 23 06:40:24 10/29/19 15 Colonoscopy completed Not Available [facility] 11/03/19 23 06:40:24 09/04/19 07 Colonoscopy completed Not Available [facility] 11/03/19 23 06:40:24 Imaging Results None recorded. Procedure Notes None recorded. Medical Equipment None Reported. Allergies No known drug allergies Medications Name Sig Start Date Stop Date Status Note LastModified by Organization Details LastModified Time prednison e 10 mg tablet Take 1 tablet every day by oral route as directed for 7 days. active Take 40mg on day 1,2; Than 20mg on day 3,4; Than 10mg on day 5,6,7. Take with food, do not take on empty stomach. Not Available Not Available Not Available tizanidin e 2 mg tablet Take 1 tablet every 12 hours by oral route as needed for 30 days. 01/10 completed Not Available Not Available Not Available valacyclo vir 1 gram tablet Take 1 tablet 3 times a day by oral route for 10 days. active Not Available Not Available No t Available ondansetr on HCl 4 mg tablet 2 tab po bid for 4 days active Not Available Not Available No t Available alendrona te 70 mg tablet Take 1 tablet every week by oral route for 90 days. active Not Available Not Available No t Available simvastat in 10 mg tablet active Not Available Not Available Not Available metronida zole 500 mg tablet i tab po tid x 10 days 07/07 completed Not Available Not Available Not Available ciproflox acin 500 mg tablet 1 tab po bid for 10 days 01/18 completed Not Available Not Available Not Available peg-elect rolyte solution 420 gram oral solution active Not Available Not Available Not Available aspirin 81 mg tablet,de layed release Take 1 tablet every day by oral route. 01/12 completed stopped it 1 year ago. Not Available Not Available Not Available Vitamin C 100 mg tablet Take 1 tablet every day by oral route. 2014 active Not Available Not Available Not Avai lable doxycycli ne hyclate 100 mg tablet Take 1 tablet twice a day by oral route for 10 days. active Not Available Not Available No t Available Boostrix Tdap 2.5 Lf unit-8 mcg-5 Lf/0.5 mL intramusc ular suspensio n active Not Available Not Available Not Available Centrum Silver 1 tablet daily 01/10 completed Not Available Not Available Not Available Douglas 3 1 tab daily 2019 active Not Available Not Available Not Avai lable Calcium 500 1 po bid 2014 active Not Available Not Available Not Avai lable PreserVis ion AREDS 2021 active Not Available Not Available Not Avai lable Zostavax (PF) 19,400 unit/0.65 mL subcutane ous suspensio n active Not Available Not Available Not Available Fish Oil 300 mg capsule Take 1 capsule twice a day by oral route. active Not Available Not Available No t Available Suprep Bowel Prep Kit 17.5 gram-3.13 gram-1.6 gram oral solution active Not Available Not Available Not Available Vitamin D2 1 tab daily 2019 active Not Available Not Available Not Avai lable Shingrix (PF) 50 mcg/0.5 mL intramusc ular suspensio n, kit 01/12 completed Not Available Not Available Not Available Fluad 2018- 65yr up(PF)45 mcg(15 mcgx3)/0. 5 mL intramusc ular syringe PHARMACI ST ADMINIST ERED IMMUNIZA TION ADMINIST ERED AT TIME OF DISPENSI NG 10/28 completed Not Available Not Available Not Available Fluad Quad (65yr up)(PF) 60 mcg (15 mcg x 4)/0.5mL IM syringe PHARMACI ST ADMINIST ERED IMMUNIZA TION ADMINIST ERED AT TIME OF DISPENSI NG active Not Available Not Available No t Available Vitals Date Recorded Body height Body mass index (BMI) Body weight Body temperature Respiratory rate Heart rate Oxygen saturation Oxygen saturation in Arterial blood by Pulse oximetry Pain severity - 0-10 verbal numeric rating [Score] - Reported Systolic And Diastolic Provider Name and Address Organization Details Last Updated DateTime 3 157.48 cm 24.7 kg/m2 09078.3 2 g 96.6 [degF] 20 /min 77 /min 98 % 98 % 0 152/78 mm[Hg] Brooke Kinsey RN [place] [facility] [place] [facility] 3 12:21:33 Date Recorded Body mass index (BMI) Body height Oxygen saturation Oxygen saturation in Arterial blood by Pulse oximetry Heart rate Respiratory rate Body temperature Body weight Systolic And Diastolic Provider Name and Address Organization Details Last Updated DateTime 2 24.1 kg/m2 157.48 cm 98 % 98 % 84 /min 18 /min 97.6 [degF] 99945.1 9 g 134/86 mm[Hg] Not Available [facility] 3 06:42:48 Date Recorded Body mass index (BMI) Body height Oxygen saturation Oxygen saturation in Arterial blood by Pulse oximetry Heart rate Respiratory rate Body temperature Body weight Systolic And Diastolic Provider Name and Address Organization Details Last Updated DateTime 2 24.5 kg/m2 157.48 cm 99 % 99 % 75 /min 16 /min 97.5 [degF] 46194.3 8 g 134/82 mm[Hg] Not Available [facility] 3 06:42:48 Date Recorded Body height Body mass index (BMI) Body weight Body temperature Heart rate Respiratory rate Oxygen saturation Oxygen saturation in Arterial blood by Pulse oximetry Systolic And Diastolic Provider Name and Address Organization Details Last Updated DateTime 3 157.48 cm 24.4 kg/m2 92547.2 2 g 97.1 [degF] 76 /min 16 /min 98 % 98 % 144/80 mm[Hg] Gurdeep Alvarado [place] [facility] 3 12:08:39 Date Recorded Body mass index (BMI) Body height Oxygen saturation Oxygen saturation in Arterial blood by Pulse oximetry Heart rate Body temperature Body weight Systolic And Diastolic Provider Name and Address Organization Details Last Updated DateTime 2 24.5 kg/m2 157.48 cm 98 % 98 % 94 /min 97.8 [degF] 56384.3 8 g 142/80 mm[Hg] Not Available [facility] 3 06:42:48 Social History Question Answer Notes LastModified by Organizat ion Details LastModified Time Tobacco Smoking Status Never Smoker Not Available [facility] 11/02/2022 06:39:47 Do You Have An Advance Directive? Yes MIGRATION.[id number] [id number] Information not available 11/02/2022 Are You Blind Or Do You Have Difficulty Seeing? No MIGRATION.64953 89753 Information not available 11/02/2022 Is Blood Transfusion Acceptable In An Emergency? Yes Information not available 01/10/2023 What Is Your Level Of Caffeine Consumption? Occasional MIGRATION.58160 99291 Information not available 11/02/2022 How Much Tobacco Do You Chew? None MIGRATION.55451 65250 Information not available 11/02/2022 What Is Your Code Status? Full Code Information not available 01/10/2023 In The 14 Days Before Symptom Onset, Have You Had Close Contact With A Laboratory-confir med COVID-19 While That Case Was Ill? No MIGRATION.05202 89535 Information not available 11/02/2022 In The 14 Days Before Symptom Onset, Have You Had Close Contact With A Person Who Is Under Investigation For COVID-19 While That Person Was Ill? No MIGRATION.37878 83851 Information not available 11/02/2022 Are You Deaf Or Do You Have Serious Difficulty Hearing? No MIGRATION.35035 72771 Information not available 11/02/2022 What Type Of Diet Are You Following? REGULAR MIGRATION.45082 27976 Information not available 11/02/2022 Which Illicit Or Recreational Drugs Have You Used? None MIGRATION.30050 65170 Information not available 11/02/2022 What Is The Highest Grade Or Level Of School You Have Completed Or The Highest Degree You Have Received? [id number] MIGRATION.13513 10889 Information not available 11/02/2022 How Many Days Of Moderate To Strenuous Exercise, Like A Brisk Walk, Did You Do In The Last 7 Days? 7 Information not available 01/10/2023 Have There Been Any Changes To Your Family Or Social Situation? No MIGRATION.39670 89682 Information not available 11/02/2022 Do You Use Insect Repellent Routinely? No MIGRATION.46551 24318 Information not available 11/02/2022 Where Do You Live? [place]House MIGRATION.14094 52282 Information not available 11/02/2022 Do You Have A Medical Power Of College Professor? Yes Information not available 01/10/2023 What Was The Date Of Your Most Recent Tobacco Screening? 02/08/2022 MIGRATION.49071 02619 Information not available 11/02/2022 How Many Children Do You Have? 2 Information not available 01/10/2023 Have You Ever Been Counseled For Unhealthy Alcohol Use? No MIGRATION.96312 90855 Information not available 11/02/2022 Do You Have Any Pets? Yes MIGRATION.04479 81402 Information not available 11/02/2022 What Is Your Relationship Status? MIGRATION.58041 63672 Information not available 11/02/2022 Do You Use Your Seat Belt Or Car Seat Routinely? Yes Information not available 01/10/2023 Do You Have Smoke And Carbon Monoxide Detectors In Your Home? Yes MIGRATION.29907 69212 Information not available 11/02/2022 Are You Passively Exposed To Smoke? No MIGRATION.72940 57458 Information not available 11/02/2022 Are There Any Smokers In Your House? No MIGRATION.70480 24998 Information not available 11/02/2022 How Much Tobacco Do You Smoke? No MIGRATION.06002 32876 Information not available 11/02/2022 Do You Participate In Social Media? Yes Information not available 01/10/2023 What Types Of Sporting Activities Do You Participate In? Walk Information not available 01/10/2023 Do You Use Sunscreen Routinely? Yes MIGRATION.32214 46070 Information not available 11/02/2022 Has Tobacco Cessation Counseling Been Provided? No MIGRATION.99629 15434 Information not available 11/02/2022 Have You Recently Traveled Abroad? No MIGRATION.06609 10161 Information not available 11/02/2022 Do You Have Difficulty Walking Or Climbing Stairs? No MIGRATION.16643 26570 Information not available 11/02/2022 Are You Currently In School? No MIGRATION.86694 40681 Information not available 11/02/2022 Sex: Unknown Functional Status Question Answer Note LastModified by [employer] Details LastModified Time Do you use any illicit or recreational drugs? No MIGRATION.900533 6174 Information not available 11/02/2022 Do you or have you ever used any other forms of tobacco or nicotine? No MIGRATION.550033 7711 Information not available 11/02/2022 What is your level of alcohol consumption? Occasional MIGRATION.925197 7469 Information not available 11/02/2022 Do you or have you ever used smokeless tobacco? Never used smokeless tobacco MIGRATION.943154 3567 Information not available 11/02/2022 Do you have transportation difficulties? No MIGRATION.918391 5357 Information not available 11/02/2022 Are you able to walk? YESWOREST MIGRATION.898337 5884 Information not available 11/02/2022 Do you have difficulty doing errands alone? No MIGRATION.249870 5411 Information not available 11/02/2022 Are you able to care for yourself independently? Yes MIGRATION.364698 1057 Information not available 11/02/2022 What is your occupation? Retired MIGRATION.109231 3223 Information not available 11/02/2022 Do you have difficulty dressing, bathing, grooming, or toileting? No MIGRATION.079928 1578 Information not available 11/02/2022 Do you or have you ever used e-cigarettes or vape? Never used electronic cigarettes MIGRATION.001314 0301 Information not available 11/02/2022 What is your exercise level? Moderate MIGRATION.592324 0424 Information not available 11/02/2022 Mental Status Question Answer Note LastModified by [employer] ion Details LastModified Time Do you feel stressed (tense, restless, nervous, or anxious, or unable to sleep at night)? [id number] Information not available 01/10/2023 Do you have difficulty concentrating, remembering or making decisions? No MIGRATION.[id number] 26 Information not available 11/02/2022 Family History Relationship Description Onset Age of this Age Resolved Age Notes LastModified by Organization Details LastModified Time Father Heart disease MIGRATION.780 [id number] Not available 11/02/2022 06:40:26 Father Diabetes mellitus MIGRATION.191 [id number] Not available 11/02/2022 06:40:27 Father Arthritis [email or web address] Not availa ble 07/13/2023 12:00:14 Father Pneumonia [email or web address] Not availa ble 07/13/2023 12:00:14 Father Cerebrovascu lar accident Not available 12:00:14 Mother Heart disease MIGRATION.694 [id number] Not available 11/02/2022 06:40:27 Mother Hypertensive disorder MIGRATION.209 [id number] Not available 11/02/2022 06:40:27 Mother Arthritis [email or web address] Not availa ble 07/13/2023 12:00:14 Mother Family history of malignant neoplasm [email or web address] Not available 07/13 12:00:14 Maternal Grandmother Hypertensive disorder MIGRATION.954 [id number] Not available 11/02/2022 06:40:27 Paternal Grandmother Diabetes mellitus MIGRATION.519 [id number] Not available 11/02/2022 06:40:27 Paternal Grandmother Heart disease MIGRATION.548 [id number] Not available 11/02/2022 06:40:27 Paternal Grandmother Family history of malignant neoplasm [email or web address] Not available 07/13 12:00:14 Maternal Grandfather Hypertensive disorder MIGRATION.812 [id number] Not available 11/02/2022 06:40:27 Medical History Condition Response ARTHRITIS Y HIGH CHOLESTEROL / HYPERLIPIDEMIA Y ANXIETY DISORDER Y ANEMIA/BLOOD DISORDER Y OSTEOPOROSIS Y Gynecological History Statement/Question Response If Post Menopausal, Age at Menopause 59 Date of Last Mammogram 04/19/2023 Date of Last Colonoscopy Most Recent Mammogram 03/02/2022 Most Recent Bone Density 07/20/2023 Obstetrics History GPAL:G 3 P 3 0 0 3 Type Value Full Term 3 Living 3 Total 3 Immunizations Vaccine Type Date Status Note Provider Nam e and Address Organization Details Recorded Time RSV, recombinant, protein subunit RSVpreF, adjuvant reconstituted, 0.5 mL, PF 4 completed Dina mitchell, [facility] 09/07/2023 14:43:17 Influenza, high-dose, quadrivalent, PF 3 completed SHEILA Garrison, [facility] 07/13/2023 12:40:44 SARS-COV-2 (COVID-19) vaccine, UNSPECIFIED 1 completed Not Available [facility] 11/02/2022 06:52:37 SARS-COV-2 (COVID-19) vaccine, UNSPECIFIED 1 completed Not Available [facility] 11/02/2022 06:52:38 SARS-COV-2 (COVID-19) vaccine, UNSPECIFIED 2 completed Not Available [facility] 11/02/2022 06:52:38 Influenza, split virus, quadrivalent, preservative 2 completed Not Available [facility] 11/02/2022 06:52:38 Influenza, high-dose, quadrivalent, PF 1 completed Not Available [facility] 11/02/2022 06:52:38 zoster recombinant 0 completed Not Available [facility] 11/02/2022 06:52:38 Influenza, split virus, quadrivalent, preservative 0 completed Not Available [facility] 11/02/2022 06:52:38 Influenza, split virus, quadrivalent, preservative 9 completed Not Available [facility] 11/02/2022 06:52:38 Influenza, split virus, quadrivalent, preservative 8 completed Not Available [facility] 11/02/2022 06:52:39 Influenza, split virus, quadrivalent, preservative 7 completed Not Available [facility] 11/02/2022 06:52:39 Influenza, high-dose, trivalent, PF 6 completed Not Available [facility] 11/02/2022 06:52:39 Influenza, split virus, trivalent, preservative 4 completed Not Available [facility] 11/02/2022 06:52:39 Pneumococcal conjugate PCV 13 8 completed Not Available [facility] 11/02/2022 06:52:39 pneumococcal polysaccharide PPV23 5 completed Not Available [facility] 11/02/2022 06:52:40 Tdap 5 completed Not Available [facility] 11/02/2022 06:52:40 zoster live 5 completed Not Available [facility] 11/02/2022 06:52:40 Past Encounters Encounter ID Performer Location Encounter Start Date Encounter Closed Date Diagnosis/Indication Diagnosis SNOMED-CT Code Diagnosis ICD10 Code Diagnosis Note [id number] John Grullon MD [address] [address] 01/12/2021 00:00:00 01/12/2021 18:02:31 [id number] John Grullon MD [address] [address] 07/15/2021 00:00:00 07/15/2021 18:27:31 [id number] John Grullon MD [address] [address] 01/18/2022 00:00:00 01/18/2022 10:01:10 [id number] KENYON Solomon IGRATION_ DEFAULT_1 _1 , 02/07/2022 00:00:00 03/02/2022 13:29:31 [id number] KENYON Solomon IGRATION_ DEFAULT_1 _1 , 02/14/2022 00:00:00 03/02/2022 13:27:41 [id number] KENYON Solomon IGRATION_ DEFAULT_1 _1 , 02/21/2022 00:00:00 02/22/2022 09:33:45 [id number] KENYON Solomon IGRATION_ DEFAULT_1 _1 , 02/28/2022 00:00:00 03/01/2022 10:06:17 [id number] Chu Nichols DPM [facility] [address] [facility] [address] [place] [address] 03/10/2022 00:00:00 03/10/2022 14:32:20 [id number] JESSICA SolomonRikki _ZIYADENA_M IGRATION_ DEFAULT_1 _1 , 03/28/2022 00:00:00 04/01/2022 15:45:42 [id number] JESSICA SolomonRikki CARRANZAENA_M IGRATION_ DEFAULT_1 _1 , 04/11/2022 00:00:00 04/28/2022 21:15:29 [id number] JESSICA SolomonRikki OsborneATHENA_M IGRATION_ DEFAULT_1 _1 , 04/25/2022 00:00:00 04/25/2022 17:16:59 [id number] John Grullon MD [address] [address] 06/23/2022 00:00:00 06/23/2022 17:14:23 [id number] John Grullon MD [address] [address] [address] 07/07/2022 00:00:00 07/07/2022 09:52:34 [id number] John Grullon MD [address] [address] 1 07/25/2022 00:00:00 07/25/2022 10:04:25 [id number] Brooke Coleman NP [address] [address] 01/10/2023 12:10:21 01/10/2023 12:45:40 Postmenopausal osteopenia [id number] M85.80 Hyperlipidemia [id number] E78.5 Simvastati n 10 mg po nightly. Low fat diet.Fish oil 300 mg po bid.Douglas 3 Diverticul osis of colon [id number] K57.30 Stable. Avoid triggers. Inflammati on of rotator cuff tendon [id number] M67.819 Stable since therapy. Osteopenia [id number] M85 .80 Calcium 500 mg po bid, vit d2 daily Cervical s pondylosis without myelopathy [id number] M47.812 stable since therapy Pain of ri ght shoulder joint [id number] M25.511 stable since therapy. Screening for malignant neoplasm of breast [id number] Z12.39 [id number] Brooke Coleman NP [facility] [address] [address] 07/13/2023 11:59:40 07/13/2023 12:24:33 Administration of influenza vaccine [id number] Z23 High dose. Hyperlipidemia 59363690 E78.5 Simvastati n 10 mg po nightly. Low fat diet.Fish oil 300 mg po bid.Douglas 3 Diverticul osis of colon 582079195 K57.30 Stable. Avoid triggers. Osteopenia [id number] M85 .80 Calcium 500 mg po bid, vit d2 daily Mammography abnormal 168 [id number] R92.8 Health Concerns Section Related Observation LastModified by Organization Detai ls LastModified Time None Recorded Concern Status LastModified by Organization Details LastModified Time None Recorded Advance Directives Directive Y: Payers Insurance Date Sequence Insurance Name Policy Number Policy Kyle Covered Member ID Kyle Member ID Guarantor Name 07/10/2023 1 [employer] (MEDICARE REPLACEMENT /ADVANTAGE - PPO) [id number] Lelia Heard [id number] Anjana Heard 07/07/2023 1 [place] Anjana Heard [id number] Anjana Heard 07/07/2023 1 [facility] (MEDICARE REPLACEMENT /ADVANTAGE - PPO) [id number] Lelia Heard [id number] Anjana Heard OBGyn Episode No OBEpisode recorded.
== END 2025-03-31 09:04 | disposition home or self-care (01) ==
PROVIDERS: PCP Nurse Practitioner Family; Visit Provider Urology
DX: N20.0 Calculus of kidney (principal)
CPT/HCPCS: 74176

== ENCOUNTER 2025-04-10 03:07 | Day surgery (SDC) | payer MEDICARE, SELFPAY ==
[2025-03-24 14:32] VITALS: BMI 24.2
--- OUTSIDE RECORDS SUMMARY | 2025-04-10 03:09 | XMS_ITS | Clinical Summary ---
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
--- OUTSIDE RECORDS SUMMARY | 2025-04-10 03:09 | XMS_ITS | Clinical Summary ---
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 Active calcium citrate-vitamin d3 (CITRACAL D) 315 mg-5 mcg (200 unit) Tablet Take 3 Tablets by mouth daily. Active ascorbic acid (VITAMIN C) 250 mg Tablet, Chewable Take 250 mg by mouth daily. Active Fish Oil-[place]-3 Fatty Acids 360-1,200 mg Capsule Take 1 [...] STL ABSTRACTION Provider, Abstract 02/25/2025 Orders Only [facility] [address] [place] [address] Justin Sidhu MD 02/24/2025 11:30 AM CDT Office Visit [facility] [address] [place] [address] Justin Sidhu MD Malignant neoplasm [...] Description 06/30/2025 11:45 AM CDT Office Visit [facility] [address] [facility] [address] [place] [address] Justin Sidhu MD [address] [facility] [facility] [address] [place] [address] Health Maintenance Due Date Last [...] from Last 3 Months Insurance [employer] O [facility]
[2025-04-10 08:04] VITALS: BP 171/56; PULSE 77; RESP 18; TEMP 36.4; O2SAT 100
[2025-04-10] MEDS: LACTATED RINGERS 1,000 ML 150 ML IV CONT (08:18)
--- NOTE | 2025-04-10 08:34 | P.PNAN_ITS ---
Anes - Initial Pre Proc Eval Procedure: Operation Date: 04/10/25 09:00 Proposed Procedures p Screening Colonoscopy - Sahil Ashby MD Date/Time: 04/10/25 08:34 Surgeon: Sahil Ashby MD Pre Op Diagnosis: neoplasm screening Patient Data Age: 79 Gender: F Height: 1.57 m Weight: 59.3 kg Last Vital Signs Temp 36.4 C L 04/10/25 08:04 Pulse 77 04/10/25 08:04 Resp 18 04/10/25 08:04 BP 171/56 H 04/10/25 08:04 Pulse Ox 100 04/10/25 08:04 O2 Del Method Room Air 04/10/25 08:04 Allergies Allergy/AdvReac Type Severity Reaction Status Date / Time No Known Allergies Allergy Verified 04/10/25 08:03 Home Medications ?Medication ?Instructions ?Recorded ?Confirmed ?Type calcium 500 mg (as 1 tablet PO DAILY 01/16/20 04/10/25 History carbonate)-vitamin D3 5 mcg (200 unit) tablet (Calcium 500 + D) omega 3 350 mg-dha 235 mg-epa 90 1 cap PO DAILY 01/16/20 04/10/25 History mg-fish oil 597 mg capsule,delay rel ([place]-3) vit A 7,160 unit-C 113 mg-E 100 1 tablet PO DAILY 01/16/20 04/10/25 History fesg-sjiz-wpmxne tablet,delayed rel. (ICaps AREDS) ascorbic acid (vitamin C) 1,000 mg 1 g PO DAILY 04/19/24 04/10/25 History capsule multivitamin 1 tablet PO DAILY 04/19/24 04/10/25 History tamoxifen 20 mg tablet 20 mg PO DAILY 07/23/24 04/10/25 History simvastatin 40 mg tablet 40 mg PO DAILY #90 tabs 01/23/25 04/10/25 Rx Patient hx anesthesia problems: none Family hx anesthesia problems: none Results Review: All pre-operative results and documents have been reviewed as part of the pre- operative evaluation. [facility], [facility] Past Medical History Medical History Breast mass, right Osteopenia Arthritis Anxiety Hyperlipidemia Surgical History Surgical History History of breast surgery lumpectomy on Right breast- 04/2024 Family History Family History Father Diabetes mellitus Heart disease Cerebrovascular accident Mother Carcinoma of colon Hypertension Depression Heart disease Sibling Depression Alcoholism Grandparent Breast cancer Asthma Hypertension Diabetes mellitus Heart disease Social History Social History Social History: 12/05/24 very confident filling out medical forms Caffeine-daily Smoking status: Never smoker Second hand tobacco smoke exposure: No Alcohol intake: never Alcohol use details: rarely Substance use: never Substance use type: does not use Do You Feel Safe in your Home?: Yes Lack of Transportation: No Lack of Food: Never True Current Housing: Decline to Answer Concerned About Future Housing: Decline to Answer Difficulty Paying Gas/Electric Bills: Decline to Answer Difficulty Paying for Meds: Decline to Answer Currently Unemployed: Decline to Answer Education: Decline to Answer Difficulty w/ Childcare or Family Care: Decline to Answer Living arrangements: with family Additional living arrangements comments: [employer] Occupation/Education: retired Gender identity (if verbalized by the patient): Female Spiritual care concerns: No Agree to blood products: Yes Anes - Eval Final PreProcedure Day of Procedure 04/10/25 08:34 Patient weight: normal Heart: regular rate and rhythm Lungs: clear to auscultation Airway: Mallampati scale class III Neurological: alert and oriented Last oral intake: >/= 8 hours ASA classification: III Emergent: no Anesthetic plan: proceed Anesthesia type and monitoring: general GIVS and standard monitoring Results Review: All pre-operative results and documents have been reviewed as part of the pre- operative evaluation. Informed Consent: The patient's anesthetic plan and its attendant risks and benefits were discussed with the patient/family/POA. Questions were solicited and answers provided to the satisfaction of the patient/family/POA.
--- NOTE | 2025-04-10 09:18 | P.HP_ITS ---
H&P: HPI History of Present Illness Date/Time: 04/10/25 09:18 Chief Complaint: Family history of colorectal ca Narrative: This patient has family history of colorectal cancer. her mother had when she was in her 60s. He has been undergoing several colonoscopies every 5 years and never finding polyps. Review of Systems Review of Systems: All systems reviewed & are unremarkable except as noted in HPI and below PMFSH Past Medical History Medical History Breast mass, right Osteopenia Arthritis Anxiety Hyperlipidemia Surgical History Surgical History History of breast surgery lumpectomy on Right breast- 04/2024 Family History Family History Father Diabetes mellitus Heart disease Cerebrovascular accident Mother Carcinoma of colon Hypertension Depression Heart disease Sibling Depression Alcoholism Grandparent Breast cancer Asthma Hypertension Diabetes mellitus Heart disease Social History Social History Social History: 12/05/24 very confident filling out medical forms Caffeine-daily Smoking status: Never smoker Second hand tobacco smoke exposure: No Alcohol intake: never Alcohol use details: rarely Substance use: never Substance use type: does not use Do You Feel Safe in your Home?: Yes Lack of Transportation: No Lack of Food: Never True Current Housing: Decline to Answer Concerned About Future Housing: Decline to Answer Difficulty Paying Gas/Electric Bills: Decline to Answer Difficulty Paying for Meds: Decline to Answer Currently Unemployed: Decline to Answer Education: Decline to Answer Difficulty w/ Childcare or Family Care: Decline to Answer Living arrangements: with family Additional living arrangements comments: [employer] Occupation/Education: retired Gender identity (if verbalized by the patient): Female Spiritual care concerns: No Agree to blood products: Yes Meds Home Medications and Allergies Home Medications ?Medication ?Instructions ?Recorded ?Confirmed ?Type calcium 500 mg (as 1 tablet PO DAILY 01/16/20 04/10/25 History carbonate)-vitamin D3 5 mcg (200 unit) tablet (Calcium 500 + D) omega 3 350 mg-dha 235 mg-epa 90 1 cap PO DAILY 01/16/20 04/10/25 History mg-fish oil 597 mg capsule,delay rel ([place]-3) vit A 7,160 unit-C 113 mg-E 100 1 tablet PO DAILY 01/16/20 04/10/25 History einc-pzel-tlkbnz tablet,delayed rel. (ICaps AREDS) ascorbic acid (vitamin C) 1,000 mg 1 g PO DAILY 04/19/24 04/10/25 History capsule multivitamin 1 tablet PO DAILY 04/19/24 04/10/25 History tamoxifen 20 mg tablet 20 mg PO DAILY 07/23/24 04/10/25 History simvastatin 40 mg tablet 40 mg PO DAILY #90 tabs 01/23/25 04/10/25 Rx Allergies Allergy/AdvReac Type Severity Reaction Status Date / Time No Known Allergies Allergy Verified 04/10/25 08:03 Vital Signs Vital Signs - 24 hr 04/10/25 08:04 Temperature 97.5 F L Pulse Rate 77 Respiratory Rate 18 Blood Pressure 171/56 H Pulse Oximetry 100 Oxygen Delivery Room Air Exam Const: General: cooperative and healthy appearing Resp: Effort & Inspection: normal respiratory effort and able to speak in complete sentences Auscultation: clear to auscultation bilaterally Cardio: Rate: regular rate Rhythm: regular rhythm GI: Inspection: normal to inspection GI Palp: No No hepatosplenomegaly present Auscultation: normal bowel sounds Rectal Exam: deferred Skin: General skin exam: normal color Psych: Appearance: grossly normal Mental Status: mental status grossly normal Assessment and Plan Assessment and plan (1) Family history of colon cancer: Code(s): Z80.0 - Family history of malignant neoplasm of digestive organs Status: Acute Assessment and Plan: The patient is deemed a good candidate for the procedure. Consent signed. Will proceed.
[2025-04-10] MEDS: SIMETHICONE ORAL SUSPENSION 20 MG/0.3 ML 30 ML BOTTLE 0.6 ML IRRIGATION (09:31)
[2025-04-10 09:42] VITALS: BP 112/56; PULSE 71; RESP 16; O2SAT 100
[2025-04-10 09:52] VITALS: BP 145/88; PULSE 69; RESP 15; O2SAT 100
[2025-04-10 10:02] VITALS: BP 151/82; PULSE 75; RESP 21; O2SAT 100
== END 2025-04-10 10:12 | disposition home or self-care (01) ==
PROVIDERS: PCP Nurse Practitioner Family; Referring Provider Nurse Practitioner Family; Visit Provider Internal Medicine Gastroenterology
PROC: 0DJD8ZZ Inspection of Lower Intestinal Tract, Via Natural or Artificial Opening Endoscopic (ICD-10-PCS; CPT 45378; principal; 2025-04-10 09:00)
DX: Z12.11 Encounter for screening for malignant neoplasm of colon (principal); K64.8 Other hemorrhoids; K57.30 Diverticulosis of large intestine without perforation or abscess without bleeding; Z79.810 Long term (current) use of selective estrogen receptor modulators (SERMs); Z90.11 Acquired absence of right breast and nipple; Z80.0 Family history of malignant neoplasm of digestive organs; Z80.3 Family history of malignant neoplasm of breast; Z82.49 Family history of ischemic heart disease and other diseases of the circulatory system
CPT/HCPCS: G0105; J2003; J2704; J7120

== ENCOUNTER 2025-07-21 09:08 | Outpatient (CLI) | payer MEDICARE, SELFPAY ==
--- NOTE | ~2025-07-21 | DEXA_ITS ---
Bone Density Report Name: SANGITA MOLINA Age: 79 Sex: Female Ethnicity: White Date of : 1945 Indication: postmenopausal; screening for osteoporosis; Referring Provider: WALTER CHERY Study: Bone densitometry was performed. Exam Date: July 21, 2025 Accession number: [id number] Bone Density: Region BMD T-score Z-score Classification AP Spine(L1-L4) 0.886 -1.5 1.2 Osteopenia Femoral Neck (Left) 0.679 -1.5 0.7 Osteopenia Total Hip (Left) 0.785 -1.3 0.7 Osteopenia Femoral Neck (Right) 0.654 -1.8 0.5 Osteopenia Total Hip (Right) 0.775 -1.4 0.6 Osteopenia Total Hip Mean 0.780 -1.4 0.7 Osteopenia World Health Organization criteria for BMD impression classify patients as: Normal (T-score at or above -1.0), Osteopenia (T-score between -1.0 and -2.5), or Osteoporosis (T-score at or below -2.5). 10-year Fracture Risk(1): Major Osteoporotic Fracture 14% Hip Fracture 3.6% Reported Risk Factors: [place] (), Neck BMD=0.654, BMI=24.5 (1) FRAX(R) Version 3.08. Fracture probability calculated for an untreated patient. Fracture probability may be lower if the patient has received treatment. Impression: The patient has low bone mass, based on the Right Femoral Neck T-score. The patient has an estimated ten-year risk of hip fracture of 3.6% and an estimated ten-year risk of major fracture of 14%, based on the WHO FRAX algorithm. Discussion: BONE DENSITY IS LOW AT ONE OR MORE SKELETAL SITES. THE PATIENT'S BMD AND CLINICAL RISK FACTORS CONTRIBUTE TO THIS PATIENT'S INCREASED RISK OF FRACTURE. This patient's lowest T-score is low at one or more skeletal sites. It meets the World Health Organization's (WHO) criteria for ?low bone mass? (T-score between -1.0 and -2.5). The patient's 10-year risk of hip fracture as calculated by FRAX exceeds the threshold where pharmacological therapy is recommended by the National Osteoporosis Foundation (NOF). However, all treatment decisions require clinical judgment and consideration of individual patient factors, including patient preferences, comorbidities, previous drug use, risk factors not captured in the FRAX model (e.g., frailty, falls, vitamin D deficiency, increased bone turnover, interval significant decline in bone density) and possible under or overestimation of fracture risk by FRAX. The patient should follow a healthful lifestyle (good nutrition with adequate calcium and vitamin D, and appropriate weight-bearing exercise). Follow-Up: Consider a repeat BMD and Vertebral Fracture Assessment (VFA) exam in 2 years or sooner if medically necessary, to reassess this patient's status. Reported by: RAE on 07/21/2025 9:51:00 AM. Reviewed, dictated and finalized at location A.
== END 2025-07-21 09:09 | disposition home or self-care (01) ==
LOC: ANHFOHIMG 09:09
PROVIDERS: PCP Nurse Practitioner Family; Visit Provider Internal Medicine Hematology & Oncology
DX: M85.89 Other specified disorders of bone density and structure, multiple sites (principal)
CPT/HCPCS: 77080